=== PATIENT | female | born 1945 | race Hispanic/Latino ===

== ENCOUNTER 2016-08-16 08:37 | Emergency (ER) | payer MEDICARE ==
--- NOTE | 2016-08-16 09:59 | XRay Report ---
AP CHEST: HISTORY: chest pain Borderline cardiomegaly. Normal pulmonary vascularity. The lungs are clear. No pleural effusion or pneumothorax. Neurostimulator device is noted in the left chest. The bony structures are demineralized but grossly intact. IMPRESSION: Borderline cardiomegaly. No acute process noted. Osteopenia.
[2016-08-16 10:29] LABS: Basophils % (Auto) 0.2 % (0.0-1.8); Eosinophils % (Auto) 0.2 % (0.0-4.3); Hematocrit 38.9 % (30.3-42.9); Hemoglobin 12.6 gm/dl (10.1-14.3); Mean Corpuscular HGB Conc 32 % (30-34); Mean Corpuscular Hemoglobin 33 pg (28-32); Mean Corpuscular Volume 100 fl (79-97); Platelet Count 268 K/mm3 (140-440); Red Blood Count 3.88 M/mm3 (3.65-5.03); Red Cell Distribution Width 13.9 % (13.2-15.2)
[2016-08-16 10:40] LABS: Anion Gap 15 mmol/L; Blood Urea Nitrogen 9 mg/dL (7-17); Carbon Dioxide 27 mmol/L (22-30); Chloride 100.5 mmol/L (98-107); Glucose 105 mg/dL (65-100); Potassium 3.8 mmol/L (3.6-5.0); Sodium 139 mmol/L (137-145)
--- NOTE | 2016-08-16 10:45 | Cat Scan Report ---
CT HEAD WITHOUT CONTRAST: HISTORY: Seizure, fall, head injury. Left parietal soft tissue swelling is noted. Left frontotemporal craniotomy changes are noted with encephalomalacia throughout the left anterior temporal lobe. There is diffuse cortical volume loss and chronic white matter changes. Chronic lacunar infarct in the right thalamus is unchanged. No evidence for hemorrhage, mass, mass effect or large area of acute ischemia. Ventricular size is within normal limits. The posterior fossa contents are unremarkable. The visualized sinuses and mastoid air cells are well-aerated. IMPRESSION: Left parietal soft tissue swelling. No acute intracranial process is appreciated.
[2016-08-16] MEDS: TRILEPTAL PO ONE (11:28)
--- NOTE | 2016-08-16 11:39 | Emergency Department Report ---
ED Seizure HPI - General Chief Complaint: Seizure Stated Complaint: SEIZURE Time Seen by Provider: 08/16/16 10:19 Source: patient, family, EMS Mode of arrival: Stretcher Limitations: Altered Mental Status - History of Present Illness Initial Comments: 70-year-old female with a past medical history of Alzheimer's dementia, epilepsy , brain surgery, and implanted nerve stimulator presents to the hospital complaints of 2 seizures this a.m. prior to arrival. Patient resides at [facility]. Seizure was noted by staff. It is also suspect that patient fell last night after be placed in the bed since the blood was found on the floor. Patient has unexplained bruising to her anterior chest wall as well. Patient denies any symptoms currently but unable to provide detailed HPI secondary to dementia. Son at bedside is presenting history of present illness. Last seizure was 2 weeks ago. She is neurologist is Dr. Guy Rodriguez at [place]. Patient's been compliant with her Trileptal, Felbatol , and Vimpat for seizures. Patient did not have her seizure medications this morning. - Related Data Home Medications Medication Instructions Recorded Confirmed Last Taken guaiFENesin DM [Robitussin Dm] 5 ml PO Q4H PRN 04/07/15 04/07/15 04/07/15 Previous Rx's Medication Instructions Recorded Last Taken Type OXcarbazepine [Trileptal] 300 mg PO 0800,1700 #60 tablet 04/12/14 04/07/15 Rx Felbamate [Felbatol] 600 mg PO BID #60 tablet 04/10/15 Unknown Rx Haloperidol [Haldol] 0.5 mg PO Q4HR PRN #30 tablet 04/10/15 Unknown Rx LORazepam [Ativan] 0.5 mg PO Q6H PRN #30 tablet 04/10/15 Unknown Rx Lacosamide [Vimpat] 150 mg PO 0800,1700 #60 tablet 04/10/15 Unknown Rx Levofloxacin [Levaquin TAB] 500 mg PO QDAY #10 tablet 04/10/15 Unknown Rx Metoprolol [Lopressor TAB] 25 mg PO BID #60 tablet 04/10/15 Unknown Rx OXcarbazepine [Trileptal] 150 mg PO DAILY@1200 #30 tablet 04/10/15 Unknown Rx Omeprazole [PriLOSEC] 20 mg PO DAILY #30 capsule. 04/10/15 Unknown Rx Sennosides [Senokot] 1 tab PO DAILY PRN #30 tablet 04/10/15 Unknown Rx Lacosamide [Vimpat] 150 mg PO BID #60 tablet 08/16/16 Unknown Rx Allergies Allergy/AdvReac Type Severity Reaction Status Date / Time Penicillins Allergy Unknown Verified 09/11/13 21:25 aspirin AdvReac Unknown Verified 04/07/15 19:56 ED Review of Systems ROS: Stated complaint: SEIZURE Other details as noted in HPI Comment: Unobtainable due to pts medical conditions (dementia, see HPI) ED Past Medical Hx - Past Medical History Previous Medical History?: Yes Hx Seizures: Yes Hx Dementia: Yes (Alzheimer's) Hx HIV: No Additional medical history: Epilepsy, Anxiety, Restlessness, chronic pain - Surgical History Past Surgical History?: Yes Additional Surgical History: brain surgery, nerve stimulator implanted - Social History Smoking Status: Never Smoker Substance Use Type: None - Medications Home Medications: Home Medications Medication Instructions Recorded Confirmed Last Taken Type OXcarbazepine [Trileptal] 300 mg PO 0800,1700 #60 tablet 04/12/14 04/07/1504/07 Rx guaiFENesin DM [Robitussin Dm] 5 ml PO Q4H PRN 04/07/15 04/07/15 04/07/15 History Felbamate [Felbatol] 600 mg PO BID #60 tablet 04/10/15 Unknown Rx Haloperidol [Haldol] 0.5 mg PO Q4HR PRN #30 tablet 04/10/15 Unknown Rx LORazepam [Ativan] 0.5 mg PO Q6H PRN #30 tablet 04/10/15 Unknown Rx Lacosamide [Vimpat] 150 mg PO 0800,1700 #60 tablet 04/10/15 Unknown Rx Levofloxacin [Levaquin TAB] 500 mg PO QDAY #10 tablet 04/10/15 Unknown Rx Metoprolol [Lopressor TAB] 25 mg PO BID #60 tablet 04/10/15 Unknown Rx OXcarbazepine [Trileptal] 150 mg PO DAILY@1200 #30 tablet 04/10/15 Unknown Rx Omeprazole [PriLOSEC] 20 mg PO DAILY #30 capsule. 04/10/15 Unknown Rx Sennosides [Senokot] 1 tab PO DAILY PRN #30 tablet 04/10/15 Unknown Rx Lacosamide [Vimpat] 150 mg PO BID #60 tablet 08/16/16 Unknown Rx ED Physical Exam - General Limitations: Altered Mental Status - Other Other exam information: General: No limitations, patient is alert in no acute distress Head exam: Atraumatic, normocephalic Eyes exam: Opacified right eye questionable cataracts, left pupil reactive ENT: Moist mucous membrane, no tongue laceration Neck exam: Normal inspection, full range of motion, no meningismus nontender Respiratory exam: Clear to auscultation bilateral, no wheezes, rales, crackles Cardiovascular: Bruising noted to anterior chest wall midline, minimum tenderness with palpation, no crepitus Abdomen: Soft, nondistended, and nontender, with normal bowel sounds, no rebound, or guarding Extremity: Full range of motion, no deformity, mild bruising noted at the right dennison Back: Normal Inspection, full range of motion, no tenderness Neurologic: Alert, oriented to self and place but not to year, cranial nerves intact, no motor or sensory deficit Psychiatric: normal affect, normal mood Skin: Warm, dry, intact ED Course Vital Signs 08/16/16 08/16/16 08/16/16 08:45 09:00 09:30 Temperature Pulse Rate 93 H 90 94 H Respiratory 18 19 16 Rate Blood Pressure 154/82 155/90 O2 Sat by Pulse 94 96 94 Oximetry 08/16/16 08/16/16 08/16/16 09:41 10:00 10:30 Temperature Pulse Rate 85 87 Respiratory 16 19 15 Rate Blood Pressure 155/80 156/84 O2 Sat by Pulse 99 97 97 Oximetry 08/16/16 08/16/16 08/16/16 10:46 11:00 11:30 Temperature 98.9 F Pulse Rate 89 96 H Respiratory 16 17 Rate Blood Pressure 156/80 151/78 O2 Sat by Pulse 95 87 Oximetry 08/16/16 08/16/16 08/16/16 12:00 12:30 13:00 Temperature Pulse Rate 101 H 98 H 92 H Respiratory 18 18 16 Rate Blood Pressure 137/79 129/82 148/81 O2 Sat by Pulse 96 95 Oximetry 08/16/16 08/16/16 13:30 14:00 Temperature Pulse Rate 95 H 95 H Respiratory 13 18 Rate Blood Pressure 152/80 141/83 O2 Sat by Pulse 98 96 Oximetry - Reevaluation(s) Reevaluation #1: 08/16/16 11:40 IV Vimpat, magnesium, and by mouth Tegretol ordered - Consultations Consultation #1: 08/16/1709:[address] Lane philosophy and religion instructor physician for Dr. Guy Rodriguez neurology at [place]. Recommends increasing the impact 150 twice a day. Also recommends to send levels. I informed him that whatever levels we have available are send outs and their office will need to request medical records as an outpatient to obtain these results. Follow up with Dr. Rodriguez is encouraged and he will make a note that patient required ER visitation. ED Medical Decision Making - Lab Data Result diagrams: 08/16/16 10:02 08/16/16 10:02 - EKG Data -: EKG Interpreted by Me (sinus rhythm right bundle branch block rate 95) - EKG Data When compared to previous EKG there are: no significant change (compared to 06/2014) - Radiology Data Radiology results: report reviewed CT head: Left parietal soft tissue swelling. No acute process Chest x-ray: Borderline cardiomegaly. No acute process. Osteopenia - Medical Decision Making I ordered a Tegretol level however, patient is actually on Trileptal and not Tegretol. Therefore, I would expect Tegretol level to be low. Patient is on felbamate, Triileptal, and Vimpat. We do not have any availability to order these levels through [employer] at this time. Pt received her a.m. dose of her seizure medications including the recent recommended increased dose of Vimpat. Unfortunally we do not have felbamate on pharmacy so she will need to take her dose when she returns home. Mild hypomagnesemia was treated with IV magnesium. Outpatient follow-up with neurologist will be encouraged. Son informed that there are no pending levels since we do not send those levels from the ER and to inform the neurologist during follow up. - Differential Diagnosis breakthrough seizure, intracranial hemorrhage, electrolyte abnormality Critical Care Time: No Critical care attestation.: If time is entered above; I have spent that time in minutes in the direct care of this critically ill patient, excluding procedure time. ED Disposition Clinical Impression: Breakthrough seizure, Dementia, Hypomagnesemia Disposition: DC-01 TO HOME OR SELFCARE Is pt being admited?: No Does the pt Need Aspirin: No Condition: Stable Instructions: Hypomagnesemia (ED), Recurrent Seizures Adult (ED) Additional Instructions: Increase your current Vimpat dose from 100 mg twice a day to 150 mg twice a day. I recommend that patient discontinue tramadol as needed for pain since this medication may reduce seizure threshold. Outpatient follow-up with neurology recommended. Unfortunately we do not have the capability to measure the levels of her current seizure medication. Inform your Neurologist of this so he may determine if it can be performed as an outpatient. Please return if symptoms worsen. Prescriptions: Lacosamide [Vimpat] 150 mg PO BID #60 tablet Referrals: Guy Muniz MD [Other] - VASQUEZ ([facility]rologist) Time of Disposition: 14:40
[2016-08-16 11:59] LABS: Bilirubin,Urine TNR (Negative); Blood,Urine TNR (Negative); Ketones,Urine TNR mg/dL (Negative); PH,Urine TNR (5.0-7.0); Protein,Urine TNR mg/dL (Negative)
[2016-08-16 12:00] LABS: Leukocyte Esterase,Urine TNR (Negative); Nitrite,Urine TNR (Negative); RBC,Urine TNR /HPF (0.0-6.0); Urobilinogen,Urine TNR mg/dL (<2.0); WBC,Urine TNR /HPF (0.0-6.0)
[2016-08-16 12:01] LABS: Mucus,Urine TNR /HPF
[2016-08-16 12:52] LABS: Bilirubin,Urine NEG (Negative); Blood,Urine NEG (Negative); Ketones,Urine NEG (Negative); Leukocyte Esterase,Urine NEG (Negative); Nitrite,Urine NEG (Negative); Protein,Urine <15 mg/dL mg/dL (Negative); RBC,Urine < 1.0 /HPF (0.0-6.0); Urobilinogen,Urine < 2.0 mg/dL (<2.0)
[2016-08-16] MEDS: VIMPAT 150 MG in NACL 0.9% 100 ML IV ONE (13:02)
[2016-08-16] MEDS: MAGNESIUM SULFATE 2GM/50ML 2 GM/50 ML BAG IV ONE (13:45)
[2016-08-16 14:21] VITALS: BP 141/83
== END 2016-08-16 15:08 | disposition home or self-care (01) ==
LOC: ED 08:37
DX: R56.9 Unspecified convulsions (principal); F03.90 Unspecified dementia, unspecified severity, without behavioral disturbance, psychotic disturbance, mood disturbance, and anxiety; E83.42 Hypomagnesemia
CPT/HCPCS: 36415; 70450; 71010; 80048; 80156; 81001; 83735; 85025; 93005; 93010; 96365; 96368; 99285; C9254; J3475

== ENCOUNTER 2016-09-03 18:59 | Emergency (ER) | payer MEDICARE ==
--- NOTE | 2016-09-03 21:32 | Cat Scan Report ---
FINAL REPORT PROCEDURE: CT CERVICAL SPINE WO CON TECHNIQUE: Computerized tomography of the cervical spine was performed from the skull base to T1 without contrast material. HISTORY: fall COMPARISON: No prior studies are available for comparison. FINDINGS: No fracture or subluxation is seen. The prevertebral soft tissues appear normal. Posterior elements are intact. Moderate facet arthritis is present bilaterally. Diffuse degenerative disc disease is visualize with disc space narrowing anterior posterior osteophytic spurs at each of the lumbar intervertebral disc spaces. C1-2: There is a large osteophytic spur projecting at the C1-C2 articulation on the left projecting into the spinal canal and along the left side of the cervical cord without definite cord compression.. C2-3: Neural foramina on the right is narrowed although probably still adequate. Diffuse disc bulge is present without cord compression or spinal stenosis.. C3-4: Posterior osteophytic spurs obscures the anterior epidural space and appears to be resting on the cord without cord compression. The neural foramina on the right appears stenotic the left is narrowed although probably still adequate.. C4-5: Posterior osteophytic spurring is visualized obscuring the anterior epidural space. There may be minimal cord compression centrally secondary to irregular spurring. The neural foramina are narrowed although probably still adequate.. C5-6: Posterior osteophytic spurring is visualized obscuring the anterior epidural space slightly greater to the right than the left without definite cord compression. Neural foramina are narrowed although probably still adequate.. C6-7: Posterior osteophytic spurs overlie disc bulge. This obscures the anterior epidural space and appears to be mildly compressing the anterior surface of the cord. The neural foramina are narrowed left side greater than right. I cannot exclude mild nerve root compression on the left.. C7-T1: Mild posterior osteophytic spurring present without focal disc herniation or spinal stenosis. T1-T2 asymmetric posterior osteophytic spurring projects to the right obscuring the anterior epidural space. I cannot exclude mild cord compression.. Other: There is a sub centimeter low-density nodule in the right lobe of the thyroid gland. Calcifications are visualized in the carotid arteries bilaterally indicating atherosclerotic disease.. IMPRESSION: No fracture or subluxation is seen. Moderate diffuse degenerative disc disease is present as well as facet arthritis. There is narrowing of the spinal canal and mild compression of the cervical cord secondary to the degenerative changes as well as neural foraminal narrowing as described in detail above. Atherosclerosis carotid arteries..
--- NOTE | 2016-09-03 21:45 | Cat Scan Report ---
FINAL REPORT PROCEDURE: CT HEAD/BRAIN WO CON TECHNIQUE: Computerized tomography of the head was performed without contrast material. HISTORY: fall COMPARISON: Prior CT scan of the brain 08/19/2016 FINDINGS: Previous craniotomies are again visualize left frontal temporal and right frontal temporal region. Bone flaps are in place although there is exposure of the left temporal fossa anteriorly. This is unchanged.. No acute fractures seen. There is no evidence of intracranial hemorrhage. No parenchymal hemorrhage mass lesions or mass effect are identified. There is old encephalomalacia involving the temporal lobe. There is also moderate gliosis again visualize without interval change. A small old area of encephalomalacia is again visualized in the anterior lateral aspect of the left frontal lobe. Old lacunar infarct is seen in the right thalamus and anterior limb of the left internal capsule. The ventricles are midline. The ventricles sulcal pattern and fissures are prominent consistent with mild to moderate atrophy. Postsurgical changes are seen involving right globe of the right orbit. There appears to be a band surrounding globe. There is mild mucosal thickening posteriorly in the left maxillary sinus. The olmedo of the maxillary sinuses are thicker than expected which may be related to previous chronic sinusitis. Paranasal sinuses otherwise are clear. Mastoid air cells are clear. IMPRESSION: No acute abnormalities are identified. No acute fractures or intracranial hemorrhages are identified. Postsurgical changes are seen from bilateral craniotomies. There is evidence of atrophy gliosis. Old areas of encephalomalacia are seen in the left frontal and left temporal lobe. Old lacunar infarcts are present as described.. Chronic sinusitis suspected as described above. No other abnormalities are seen.
[2016-09-03 22:13] LABS: Basophils % (Auto) 0.8 % (0.0-1.8); Eosinophils % (Auto) 0.5 % (0.0-4.3); Hematocrit 37.7 % (30.3-42.9); Hemoglobin 12.6 gm/dl (10.1-14.3); Mean Corpuscular HGB Conc 33 % (30-34); Mean Corpuscular Hemoglobin 33 pg (28-32); Mean Corpuscular Volume 98 fl (79-97); Platelet Count 255 K/mm3 (140-440); Red Blood Count 3.84 M/mm3 (3.65-5.03); Red Cell Distribution Width 14.5 % (13.2-15.2); White Blood Count 9.6 K/mm3 (4.5-11.0)
[2016-09-03 22:23] LABS: INR 1.12 (0.87-1.13)
[2016-09-03 22:30] LABS: Anion Gap 17 mmol/L; Blood Urea Nitrogen 13 mg/dL (7-17); Calcium 8.8 mg/dL (8.4-10.2); Carbon Dioxide 25 mmol/L (22-30); Chloride 104.3 mmol/L (98-107); Glucose 101 mg/dL (65-100); Potassium 3.7 mmol/L (3.6-5.0); Sodium 143 mmol/L (137-145)
[2016-09-03 22:37] VITALS: BP 186/72
[2016-09-03] MEDS ORDERED: BOOSTRIX IM ONE (22:46)
--- NOTE | 2016-09-03 23:09 | Emergency Department Report ---
ED Fall HPI - General Chief Complaint: Fall Stated Complaint: FALL Time Seen by Provider: 09/03/16 21:39 Source: family, EMS Mode of arrival: Stretcher - History of Present Illness Initial Comments: 70-year-old female with past medical history dementia presenting to the emergency room after ground level fall. Patient fell while trying to get into bed in her assisted living facility. Patient was found the floor with an abrasion to her left forehead. Patient complaining of headache and neck pain initially on ED arrival. Denies: Neuro deficits, change in vision, chest pain, back pain, extremity pain, abdominal pain. MD Complaint: fall -: Sudden Fall From: standing Fall Witnessed: no Place Fall Occurred: home Loss of Consciousness: unsure Prolonged Down Time?: no Symptoms Prior to Fall: none Location: head, neck Context: tripped/slipped Associated Symptoms: headache, neck pain, confusion. denies: numbness, weakness , chest paint, lightheaded, vertigo - Related Data Home Medications Medication Instructions Recorded Confirmed Last Taken RX: guaiFENesin DM [Robitussin Dm] 5 ml PO Q4H PRN 04/07/15 04/07/15 04/07/15 Previous Rx's Medication Instructions Recorded Last Taken Type RX: OXcarbazepine [Trileptal] 300 mg PO 0800,1700 #60 tablet 04/12/14 04/07/15 Rx RX: Felbamate [Felbatol] 600 mg PO BID #60 tablet 04/10/15 Unknown Rx RX: Haloperidol [Haldol] 0.5 mg PO Q4HR PRN #30 tablet 04/10/15 Unknown Rx RX: LORazepam [Ativan] 0.5 mg PO Q6H PRN #30 tablet 04/10/15 Unknown Rx RX: Lacosamide [Vimpat] 150 mg PO 0800,1700 #60 tablet 04/10/15 Unknown Rx RX: Metoprolol [Lopressor TAB] 25 mg PO BID #60 tablet 04/10/15 Unknown Rx RX: OXcarbazepine [Trileptal] 150 mg PO DAILY@1200 #30 tablet 04/10/15 Unknown Rx RX: Omeprazole [PriLOSEC] 20 mg PO DAILY #30 04/10/15 Unknown Rx RX: Sennosides [Senokot] 1 tab PO DAILY PRN #30 tablet 04/10/15 Unknown Rx RX: Lacosamide [Vimpat] 150 mg PO BID #60 tablet 08/16/16 Unknown Rx Cyanocobalamin/Folic Acid [B-12 1 each SL 2XWHS #30 tab.subl 08/21/16 Unknown Rx 1,000 Mcg Sub Tablet] RX: Levofloxacin [Levaquin TAB] 500 mg PO Q24HR #7 tablet 08/21/16 Unknown Rx Allergies Allergy/AdvReac Type Severity Reaction Status Date / Time Penicillins Allergy Unknown Verified 09/11/13 21:25 aspirin AdvReac Unknown Verified 04/07/15 19:56 ED Review of Systems ROS: Stated complaint: FALL Other details as noted in HPI Constitutional: denies: chills, fever Eyes: denies: eye pain, eye discharge, vision change ENT: denies: ear pain, throat pain Respiratory: denies: cough, shortness of breath, wheezing Cardiovascular: denies: chest pain, palpitations Endocrine: no symptoms reported Gastrointestinal: denies: abdominal pain, nausea, diarrhea Genitourinary: denies: urgency, dysuria, discharge Musculoskeletal: denies: back pain, joint swelling, arthralgia Skin: denies: rash, lesions Neurological: headache. denies: weakness, paresthesias Psychiatric: denies: anxiety, depression Hematological/Lymphatic: denies: easy bleeding, easy bruising ED Past Medical Hx - Past Medical History Previous Medical History?: Yes Hx Hypertension: Yes Hx Arthritis: Yes Hx Seizures: Yes Hx Dementia: Yes (Alzheimer's) Hx HIV: No Additional medical history: Epilepsy, Anxiety, Restlessness, chronic pain - Surgical History Past Surgical History?: Yes Additional Surgical History: brain surgery, nerve stimulator implanted - Social History Smoking Status: Never Smoker Substance Use Type: Prescribed - Medications Home Medications: Home Medications Medication Instructions Recorded Confirmed Last Taken Type RX: OXcarbazepine [Trileptal] 300 mg PO 0800,1700 #60 tablet 04/12/14 04/07/15 04/07/15 Rx RX: guaiFENesin DM [Robitussin Dm] 5 ml PO Q4H PRN 04/07/15 04/07/15 04/07/15 History RX: Felbamate [Felbatol] 600 mg PO BID #60 tablet 04/10/15 Unknown Rx RX: Haloperidol [Haldol] 0.5 mg PO Q4HR PRN #30 tablet 04/10/15 Unknown Rx RX: LORazepam [Ativan] 0.5 mg PO Q6H PRN #30 tablet 04/10/15 Unknown Rx RX: Lacosamide [Vimpat] 150 mg PO 0800,1700 #60 tablet 04/10/15 Unknown Rx RX: Metoprolol [Lopressor TAB] 25 mg PO BID #60 tablet 04/10/15 Unknown Rx RX: OXcarbazepine [Trileptal] 150 mg PO DAILY@1200 #30 tablet 04/10/15 Unknown Rx RX: Omeprazole [PriLOSEC] 20 mg PO DAILY #30 capsule.dr 04/10/15 Unknown Rx RX: Sennosides [Senokot] 1 tab PO DAILY PRN #30 tablet 04/10/15 Unknown Rx RX: Lacosamide [Vimpat] 150 mg PO BID #60 tablet 08/16/16 Unknown Rx Cyanocobalamin/Folic Acid [B-12 1 each SL 2XWHS #30 tab.subl 08/21/16 Unknown Rx 1,000 Mcg Sub Tablet] RX: Levofloxacin [Levaquin TAB] 500 mg PO Q24HR #7 tablet 08/21/16 Unknown Rx ED Physical Exam - General Limitations: Altered Mental Status, Physical Limitation General appearance: alert, in no apparent distress - Head Head exam: Present: normocephalic, other (Pt has abraison to left eye brow) - Eye Eye exam: Present: normal appearance - ENT ENT exam: Present: mucous membranes moist - Neck Neck exam: Present: tenderness (parspinal tenderness ) - Respiratory Respiratory exam: Present: normal lung sounds bilaterally. Absent: respiratory distress, wheezes, chest wall tenderness, accessory muscle use, decreased breath sounds - Cardiovascular Cardiovascular Exam: Present: regular rate, normal rhythm. Absent: systolic murmur, diastolic murmur, rubs, gallop - GI/Abdominal GI/Abdominal exam: Present: soft, normal bowel sounds - Extremities Exam Extremities exam: Present: normal inspection - Back Exam Back exam: Present: normal inspection - Neurological Exam Neurological exam: Present: alert, CN II-XII intact, other (5/5 extremity strength, intact sensation throughout all extremities ) - Psychiatric Psychiatric exam: Present: normal affect, normal mood - Skin Skin exam: Present: warm, dry, intact, normal color. Absent: rash ED Course Vital Signs 09/03/16 09/03/16 09/03/16 19:34 22:33 22:36 Temperature 97.9 F 97.9 F Pulse Rate 71 72 Respiratory 16 16 16 Rate Blood Pressure 199/96 Blood Pressure 199/96 186/72 [Right] O2 Sat by Pulse 97 97 97 Oximetry ED Medical Decision Making - Lab Data Result diagrams: 09/03/16 21:58 09/03/16 21:58 - Radiology Data Radiology results: report reviewed, image reviewed CT brain: No acute abnormalities identified. No acute fracture or intracranial hemorrhage identified. Postsurgical changes are seen from bilateral craniotomies. There is evidence of a trophy gliosis. Old areas of encephalomalacia in the left frontal and left temporal lobe. Old lacunar infarction present as described. Chronic sinusitis but does described above. No other abnormalities are seen. Dr Daniel HERNANDEZ. CT cervical spine: No fracture or subluxation is seen. Moderate diffuse degenerative disc disease is present as well as facet arthritis. There is narrowing of the spinal canal and mild compression of the cervical cord secondary to degenerative changes as well as neural foraminal narrowing as described in detail above. Atherosclerosis carotid arteries. Dr Sanchez - Medical Decision Making 70-year-old female with past medical history of dementia presenting to the emergency after fall. Patient does have abrasion on the head, negative head CT. Patient is complaining of neck pain I'm unable to clear her C-spine. Given that CT had concerns from mild cord compression I will transfer patient to trauma center for further evaluation and cervical spine clearance. Of note patient unable to get an MRI cervical spine at [facility] as she has a nerve stimulator device in her chest per son who was at bedside. pt will be transfered to [facility] for futher trauma evaluation concerning cervical spine pain and possible cord compression Critical Care Time: Yes Critical care attestation.: If time is entered above; I have spent that time in minutes in the direct care of this critically ill patient, excluding procedure time. Critical Care Time: 35 minutes ED Disposition Clinical Impression: Forehead abrasion, Sprain of ligament of cervical spine region, Cervical spinal cord compression Disposition: DC/TX-70 ANOTHER TYPE HLTHCARE Is pt being admited?: No Does the pt Need Aspirin: No Condition: Stable Referrals: PRIMARY CARE, [Primary Care Provider] - 3-5 Days
== END 2016-09-03 23:09 | disposition other institution (70) ==
LOC: ED 18:59
DX: S16.1XXA Strain of muscle, fascia and tendon at neck level, initial encounter (principal); S00.81XA Abrasion of other part of head, initial encounter; G95.29 Other cord compression; I10 Essential (primary) hypertension; M19.90 Unspecified osteoarthritis, unspecified site; G30.9 Alzheimer's disease, unspecified; F02.80 Dementia in other diseases classified elsewhere, unspecified severity, without behavioral disturbance, psychotic disturbance, mood disturbance, and anxiety; F41.9 Anxiety disorder, unspecified; G40.909 Epilepsy, unspecified, not intractable, without status epilepticus; G89.29 Other chronic pain; Z88.0 Allergy status to penicillin; Z88.6 Allergy status to analgesic agent; W06.XXXA Fall from bed, initial encounter; Y93.89 Activity, other specified; Y99.8 Other external cause status; Y92.009 Unspecified place in unspecified non-institutional (private) residence as the place of occurrence of the external cause
CPT/HCPCS: 36415; 70450; 72125; 80048; 84484; 85025; 85610; 90471; 90715; 93005; 93010

== ENCOUNTER 2016-09-19 19:11 | Emergency (ER) | payer MEDICARE ==
--- NOTE | 2016-09-19 20:24 | Cat Scan Report ---
FINAL REPORT PROCEDURE: CT HEAD/BRAIN WO CON TECHNIQUE: Computerized tomography of the head was performed without contrast material. HISTORY: fall head trauma COMPARISON: 09/03/2016 FINDINGS: There has been left parietotemporal craniotomy and right temporal craniotomy. There is underlying encephalomalacia of the left temporal lobe. There are diffuse underlying involutional changes. There is extensive periventricular white matter low attenuation, likely related to chronic microvascular ischemic changes. There is no CT evidence of acute intracranial hemorrhage, mass, hydrocephalus, or acute territorial infarction. The intracranial arteries are symmetric in density. There is stable high attenuation and postsurgical change of the right globe. No acute fracture is seen. Mild left maxillary sinus mucosal thickening. The mastoids are hypopneumatized bilaterally. IMPRESSION: No CT evidence of acute abnormality. Other findings as above
--- NOTE | 2016-09-19 20:31 | Cat Scan Report ---
FINAL REPORT PROCEDURE: CT CERVICAL SPINE WO CON TECHNIQUE: Computerized tomography of the cervical spine was performed from the skull base to T1 without contrast material. HISTORY: fall head trauma, neck pain COMPARISON: 09/03/2016 FINDINGS: There are multilevel degenerative disc and facet arthritic changes. There is disc space narrowing and osteophyte formation at all intervertebral body levels. No acute fracture or subluxation is seen. IMPRESSION: No acute fracture or subluxation is seen.
[2016-09-19 20:36] LABS: Hematocrit 41.1 % (30.3-42.9); Hemoglobin 13.7 gm/dl (10.1-14.3); Mean Corpuscular HGB Conc 33 % (30-34); Mean Corpuscular Hemoglobin 34 pg (28-32); Mean Corpuscular Volume 101 fl (79-97); Platelet Count 241 K/mm3 (140-440); Red Blood Count 4.07 M/mm3 (3.65-5.03); Red Cell Distribution Width 14.2 % (13.2-15.2); White Blood Count 9.1 K/mm3 (4.5-11.0)
[2016-09-19 20:52] LABS: Creatine Kinase MB 1.3 ng/mL (0.0-4.0)
[2016-09-19 20:53] LABS: Anion Gap 15 mmol/L; Blood Urea Nitrogen 13 mg/dL (7-17); Calcium 9.4 mg/dL (8.4-10.2); Carbon Dioxide 27 mmol/L (22-30); Creatine Kinase 18 units/L (30-135); Glucose 112 mg/dL (65-100); Potassium 4.4 mmol/L (3.6-5.0); Sodium 139 mmol/L (137-145)
[2016-09-19] MEDS ORDERED: MAGNESIUM SULFATE 2GM/50ML 2 GM/50 ML BAG IV ONE (21:19)
--- NOTE | 2016-09-19 21:19 | Emergency Department Report ---
ED Fall HPI - General Chief Complaint: Fall Stated Complaint: FALL Time Seen by Provider: 09/19/16 20:16 Source: patient, EMS Mode of arrival: Stretcher Limitations: Other (dementia) - History of Present Illness Initial Comments: 70-year-old female with a past medical history Alzheimer's dementia, hypertension, arthritis, and epilepsy presents to the hospital status post fall. Patient was found at the assisted living facility on the floor between the toilet and the door. Son states that patient is primarily wheelchair bound he cannot ambulate without assistance. Often she is unable to communicate that she has to go to the bathroom and when she is not being watched closely she attempts to get up. He thinks that she was likely trying to use the restroom when she fell. Patient denies any complaints. Laceration noted to the right brow. Son states patient is at her baseline mental status. Previous medical record reviewed and patient has had frequent recent visits to the ER secondary to either seizure, being found down, or fall. - Related Data Home Medications Medication Instructions Recorded Confirmed Last Taken guaiFENesin DM [Robitussin Dm] 5 ml PO Q4H PRN 04/07/15 04/07/15 04/07/15 Previous Rx's Medication Instructions Recorded Last Taken Type OXcarbazepine [Trileptal] 300 mg PO 0800,1700 #60 tablet 04/12/14 04/07/15 Rx Felbamate [Felbatol] 600 mg PO BID #60 tablet 04/10/15 Unknown Rx Haloperidol [Haldol] 0.5 mg PO Q4HR PRN #30 tablet 04/10/15 Unknown Rx LORazepam [Ativan] 0.5 mg PO Q6H PRN #30 tablet 04/10/15 Unknown Rx Lacosamide [Vimpat] 150 mg PO 0800,1700 #60 tablet 04/10/15 Unknown Rx Metoprolol [Lopressor TAB] 25 mg PO BID #60 tablet 04/10/15 Unknown Rx OXcarbazepine [Trileptal] 150 mg PO DAILY@1200 #30 tablet 04/10/15 Unknown Rx Omeprazole [PriLOSEC] 20 mg PO DAILY #30 capsule. 04/10/15 Unknown Rx Sennosides [Senokot] 1 tab PO DAILY PRN #30 tablet 02/03/16 Unknown Rx Lacosamide [Vimpat] 150 mg PO BID #60 tablet 08/16/16 Unknown Rx Cyanocobalamin/Folic Acid [B-12 1 each SL 2XWHS #30 tab.subl 08/21/16 Unknown Rx 1,000 Mcg Sub Tablet] Levofloxacin [Levaquin TAB] 500 mg PO Q24HR #7 tablet 08/21/16 Unknown Rx Allergies Allergy/AdvReac Type Severity Reaction Status Date / Time Penicillins Allergy Unknown Verified 09/11/13 21:25 aspirin AdvReac Unknown Verified 04/07/15 19:56 ED Review of Systems ROS: Stated complaint: FALL Other details as noted in HPI Comment: Unobtainable due to pts medical conditions (Limited secondary to Alzheimer see HPI) ED Past Medical Hx - Past Medical History Previous Medical History?: Yes Hx Hypertension: Yes Hx Arthritis: Yes Hx Seizures: Yes Hx Dementia: Yes (Alzheimer's) Hx HIV: No Additional medical history: Epilepsy, Anxiety, Restlessness, chronic pain - Surgical History Past Surgical History?: Yes Additional Surgical History: brain surgery, nerve stimulator implanted - Social History Smoking Status: Current Every Day Smoker Substance Use Type: None - Medications Home Medications: Home Medications Medication Instructions Recorded Confirmed Last Taken Type OXcarbazepine [Trileptal] 300 mg PO 0800,1700 #60 tablet 04/12/14 04/07/1504/07 Rx guaiFENesin DM [Robitussin Dm] 5 ml PO Q4H PRN 04/07/15 04/07/15 04/07/15 History Felbamate [Felbatol] 600 mg PO BID #60 tablet 04/10/15 Unknown Rx Haloperidol [Haldol] 0.5 mg PO Q4HR PRN #30 tablet 04/10/15 Unknown Rx LORazepam [Ativan] 0.5 mg PO Q6H PRN #30 tablet 04/10/15 Unknown Rx Lacosamide [Vimpat] 150 mg PO 0800,1700 #60 tablet 04/10/15 Unknown Rx Metoprolol [Lopressor TAB] 25 mg PO BID #60 tablet 04/10/15 Unknown Rx OXcarbazepine [Trileptal] 150 mg PO DAILY@1200 #30 tablet 04/10/15 Unknown Rx Omeprazole [PriLOSEC] 20 mg PO DAILY #30 kendy 04/10/15 Unknown Rx Sennosides [Senokot] 1 tab PO DAILY PRN #30 tablet 04/10/15 Unknown Rx Lacosamide [Vimpat] 150 mg PO BID #60 tablet 08/16/16 Unknown Rx Cyanocobalamin/Folic Acid [B-12 1 each SL 2XWHS #30 tab.subl 08/21/16 Unknown Rx 1,000 Mcg Sub Tablet] Levofloxacin [Levaquin TAB] 500 mg PO Q24HR #7 tablet 08/21/16 Unknown Rx ED Physical Exam - General Limitations: Other - Other Other exam information: General: No limitations, patient is alert in no acute distress Head exam: Right brow laceration 3 cm no active bleeding. Mild ecchymosis noted to right eyelid. 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 Neck exam: Normal inspection, full range of motion, no meningismus nontender Respiratory exam: Clear to auscultation bilateral, no wheezes, rales, crackles Cardiovascular: Normal rate and rhythm, normal heart sounds Abdomen: Soft, nondistended, and nontender, with normal bowel sounds, no rebound, or guarding Extremity: Full range of motion normal inspection no deformity Back: Normal Inspection, full range of motion, no tenderness Neurologic: Alert, oriented to self, cranial nerves intact, no motor or sensory deficit Psychiatric: normal affect, normal mood Skin: Warm, dry, intact ED Course Vital Signs 09/19/16 09/19/16 19:45 19:54 Temperature 98.1 F Pulse Rate 74 Respiratory 18 18 Rate Blood Pressure 162/80 O2 Sat by Pulse 98 100 Oximetry - Laceration /Wound Repair Right Face Wound Location: face Wound Length (cm): 3 Wound's Depth, Shape: linear Wound Explored: clean Irrigated w/ Saline (ccs): 50 Betadine Prep?: Yes Wound Repaired With: Dermabond Layer Closure?: No Sterile Dressing Applied?: Yes ED Medical Decision Making - Lab Data Result diagrams: 09/19/16 20:22 09/19/16 20:22 Lab Results 09/19/16 09/19/16 09/19/16 Range/Units 20:22 20:22 20:22 WBC 9.1 (4.5-11.0) K/mm3 RBC 4.07 (3.65-5.03) M/mm3 Hgb 13.7 (10.1-14.3) gm/dl Hct 41.1 (30.3-42.9) % MCV 101 H (79-97) fl MCH 34 H (28-32) pg MCHC 33 (30-34) % RDW 14.2 (13.2-15.2) % Plt Count 241 (140-440) K/mm3 Sodium 139 (137-145) mmol/L Potassium 4.4 (3.6-5.0) mmol/L Chloride 101.0 (98-107) mmol/L Carbon Dioxide 27 (22-30) mmol/L Anion Gap 15 mmol/L BUN 13 (7-17) mg/dL Creatinine 0.5 L (0.7-1.2) mg/dL Estimated GFR > 60 ml/min BUN/Creatinine Ratio 26.00 % Glucose 112 H (65-100) mg/dL Calcium 9.4 (8.4-10.2) mg/dL Magnesium (1.7-2.3) mg/dL Total Creatine Kinase 18 L (30-135) units/L CK-MB (CK-2) 1.3 (0.0-4.0) ng/mL CK-MB (CK-2) Rel Index 7.2 H (0-4) Troponin T < 0.010 (0.00-0.029) ng/mL Urine Color (Yellow) Urine Turbidity (Clear) Urine pH (5.0-7.0) Ur Specific Campbell (1.003-1.030) Urine Protein (Negative) mg/dL Urine Glucose (UA) (Negative) mg/dL Urine Ketones (Negative) mg/dL Urine Blood (Negative) Urine Nitrite (Negative) Urine Bilirubin (Negative) Urine Urobilinogen (<2.0) mg/dL Ur Leukocyte Esterase (Negative) Urine WBC (Auto) (0.0-6.0) /HPF Urine RBC (Auto) (0.0-6.0) /HPF 09/19/16 09/19/16 Range/Units 20:22 21:57 WBC (4.5-11.0) K/mm3 RBC (3.65-5.03) M/mm3 Hgb (10.1-14.3) gm/dl Hct (30.3-42.9) % MCV (79-97) fl MCH (28-32) pg MCHC (30-34) % RDW (13.2-15.2) % Plt Count (140-440) K/mm3 Sodium (137-145) mmol/L Potassium (3.6-5.0) mmol/L Chloride (98-107) mmol/L Carbon Dioxide (22-30) mmol/L Anion Gap mmol/L BUN (7-17) mg/dL Creatinine (0.7-1.2) mg/dL Estimated GFR ml/min BUN/Creatinine Ratio % Glucose (65-100) mg/dL Calcium (8.4-10.2) mg/dL Magnesium 1.60 L (1.7-2.3) mg/dL Total Creatine Kinase (30-135) units/L CK-MB (CK-2) (0.0-4.0) ng/mL CK-MB (CK-2) Rel Index (0-4) Troponin T (0.00-0.029) ng/mL Urine Color Straw (Yellow) Urine Turbidity Clear (Clear) Urine pH 6.0 (5.0-7.0) Ur Specific Campbell 1.013 (1.003-1.030) Urine Protein <15 mg/dl (Negative) mg/dL Urine Glucose (UA) Neg (Negative) mg/dL Urine Ketones Neg (Negative) mg/dL Urine Blood Neg (Negative) Urine Nitrite Neg (Negative) Urine Bilirubin Neg (Negative) Urine Urobilinogen < 2.0 (<2.0) mg/dL Ur Leukocyte Esterase Neg (Negative) Urine WBC (Auto) 0.0 (0.0-6.0) /HPF Urine RBC (Auto) 0.0 (0.0-6.0) /HPF - EKG Data -: EKG Interpreted by Me (sinus 68 LAE,RBB, septal infarct) - EKG Data When compared to previous EKG there are: no significant change (august 28, 2016) - Radiology Data Radiology results: report reviewed ct head: naf ct cervical spine: naf - Medical Decision Making Patient had baseline mental status. Laceration was repaired. No signs of acute infection I suspect mechanical fall due to chronic unstable gait and attempt to ambulate without assistance secondary to dementia. Patient is having frequent mechanical falls at the assisted living. Discussed possibility of need for correction placement with her son so that pt may obtain closer monitoring and care. - Differential Diagnosis fall, sz, uti, encephalopathy, dementia Critical Care Time: No Critical care attestation.: If time is entered above; I have spent that time in minutes in the direct care of this critically ill patient, excluding procedure time. ED Disposition Clinical Impression: Dementia, Fall, Face lacerations Disposition: DC- TO HOME OR SELFCARE Is pt being admited?: No Does the pt Need Aspirin: No Condition: Stable Instructions: Skin Adhesive Care (ED), Fall Prevention for Older Adults (ED) Referrals: PRIMARY CARE, [Primary Care Provider] - 3-5 Days Time of Disposition: 23:18
[2016-09-19 22:53] LABS: Bilirubin,Urine NEG (Negative); Blood,Urine NEG (Negative); Ketones,Urine NEG (Negative); Leukocyte Esterase,Urine NEG (Negative); Nitrite,Urine NEG (Negative); Protein,Urine <15 mg/dL mg/dL (Negative); Urobilinogen,Urine < 2.0 mg/dL (<2.0)
[2016-09-20] VITALS: BP 149/62
== END 2016-09-20 00:12 | disposition home or self-care (01) ==
LOC: ED 19:11
DX: S01.112A Laceration without foreign body of left eyelid and periocular area, initial encounter (principal); G30.9 Alzheimer's disease, unspecified; F02.80 Dementia in other diseases classified elsewhere, unspecified severity, without behavioral disturbance, psychotic disturbance, mood disturbance, and anxiety; I10 Essential (primary) hypertension; F31.9 Bipolar disorder, unspecified; G89.29 Other chronic pain; G40.909 Epilepsy, unspecified, not intractable, without status epilepticus; M19.90 Unspecified osteoarthritis, unspecified site; W01.0XXA Fall on same level from slipping, tripping and stumbling without subsequent striking against object, initial encounter; Z88.6 Allergy status to analgesic agent; Z88.0 Allergy status to penicillin; Z91.81 History of falling; Y93.89 Activity, other specified; Y99.8 Other external cause status; Y92.89 Other specified places as the place of occurrence of the external cause
CPT/HCPCS: 12013; 36415; 51701; 70450; 72125; 80048; 81001; 82550; 82553; 83735; 84484; 85027; 93005; 93010; 96365; 99285; J3475

== ENCOUNTER 2016-11-16 08:33 | Emergency (ER) | payer MEDICARE ==
[2016-11-16 09:59] LABS: Basophils % (Auto) 0.6 % (0.0-1.8); Eosinophils % (Auto) 0.6 % (0.0-4.3); Hematocrit 39.7 % (30.3-42.9); Hemoglobin 13.1 gm/dl (10.1-14.3); Mean Corpuscular HGB Conc 33 % (30-34); Mean Corpuscular Hemoglobin 33 pg (28-32); Mean Corpuscular Volume 100 fl (79-97); Platelet Count 231 K/mm3 (140-440); Red Blood Count 3.97 M/mm3 (3.65-5.03)
[2016-11-16 10:12] LABS: Anion Gap 19 mmol/L; Blood Urea Nitrogen 12 mg/dL (7-17); Calcium 8.8 mg/dL (8.4-10.2); Carbon Dioxide 25 mmol/L (22-30); Chloride 103.1 mmol/L (98-107); Glucose 107 mg/dL (65-100); Potassium 3.6 mmol/L (3.6-5.0); Sodium 143 mmol/L (137-145)
--- NOTE | 2016-11-16 10:13 | Emergency Department Report ---
ED Seizure HPI - General Chief Complaint: Seizure Stated Complaint: SEIZURE Time Seen by Provider: 11/16/16 09:55 Source: EMS Mode of arrival: Stretcher Limitations: Physical Limitation, Other - History of Present Illness Initial Comments: 7-year-old female known history of seizure disorder here after 7 minute tonic- clonic seizure. Was witnessed at shelter. According to staff there she struck her head. No Visible head trauma. Denies fevers chills nausea vomiting. Denies any other complaints except that she feels tired currently. According to her son she does take medications for seizures. On review of her medication list Vimpat and Trileptal are her medications. Complaint: seizure -: Sudden Description of Episode: tonic-clonic movement -: minutes(s) (7) Seizure History: known seizure disorder Place: home Possible Precipitating Event: none Associated Symptoms: denies: chest pain, confusion, cough - Related Data Home Medications Medication Instructions Recorded Confirmed Last Taken guaiFENesin DM [Robitussin Dm] 5 ml PO Q4H PRN 04/07/15 04/07/15 04/07/15 Previous Rx's Medication Instructions Recorded Last Taken Type OXcarbazepine [Trileptal] 300 mg PO 0800,1700 #60 tablet 04/12/14 04/07/15 Rx Felbamate [Felbatol] 600 mg PO BID #60 tablet 04/10/15 Unknown Rx Haloperidol [Haldol] 0.5 mg PO Q4HR PRN #30 tablet 04/10/15 Unknown Rx LORazepam [Ativan] 0.5 mg PO Q6H PRN #30 tablet 04/10/15 Unknown Rx Lacosamide [Vimpat] 150 mg PO 0800,1700 #60 tablet 04/10/15 Unknown Rx Metoprolol [Lopressor TAB] 25 mg PO BID #60 tablet 04/10/15 Unknown Rx OXcarbazepine [Trileptal] 150 mg PO DAILY@1200 #30 tablet 04/10/15 Unknown Rx Omeprazole [PriLOSEC] 20 mg PO DAILY #30 capsule. 04/10/15 Unknown Rx Sennosides [Senokot] 1 tab PO DAILY PRN #30 tablet 04/10/15 Unknown Rx Lacosamide [Vimpat] 150 mg PO BID #60 tablet 08/16/16 Unknown Rx Cyanocobalamin/Folic Acid [B-12 1 each SL 2XWHS #30 tab.subl 08/21/16 Unknown Rx 1,000 Mcg Sub Tablet] Levofloxacin [Levaquin TAB] 500 mg PO Q24HR #7 tablet 08/21/16 Unknown Rx Allergies Allergy/AdvReac Type Severity Reaction Status Date / Time Penicillins Allergy Unknown Verified 09/11/13 21:25 aspirin AdvReac Unknown Verified 04/07/15 19:56 ED Review of Systems ROS: Stated complaint: SEIZURE Other details as noted in HPI Comment: All other systems reviewed and negative Constitutional: malaise. denies: chills, fever Eyes: denies: eye pain, eye discharge, vision change ENT: denies: ear pain, throat pain Respiratory: denies: cough, shortness of breath, wheezing Cardiovascular: denies: chest pain, palpitations Endocrine: no symptoms reported Gastrointestinal: denies: abdominal pain, nausea, diarrhea Genitourinary: denies: urgency, dysuria, discharge Musculoskeletal: denies: back pain, joint swelling, arthralgia Skin: denies: rash, lesions Neurological: denies: headache, weakness, paresthesias Psychiatric: denies: anxiety, depression Hematological/Lymphatic: denies: easy bleeding, easy bruising ED Past Medical Hx - Past Medical History Hx Hypertension: Yes Hx Arthritis: Yes Hx Seizures: Yes Hx Dementia: Yes (Alzheimer's) Hx HIV: No Additional medical history: Epilepsy, Anxiety, Restlessness, chronic pain - Surgical History Additional Surgical History: brain surgery, nerve stimulator implanted - Social History Smoking Status: Unknown if ever smoked Substance Use Type: None - Medications Home Medications: Home Medications Medication Instructions Recorded Confirmed Last Taken Type OXcarbazepine [Trileptal] 300 mg PO 0800,1700 #60 tablet 04/12/14 04/07/1504/07 Rx guaiFENesin DM [Robitussin Dm] 5 ml PO Q4H PRN 04/07/15 04/07/15 04/07/15 History Felbamate [Felbatol] 600 mg PO BID #60 tablet 04/10/15 Unknown Rx Haloperidol [Haldol] 0.5 mg PO Q4HR PRN #30 tablet 04/10/15 Unknown Rx LORazepam [Ativan] 0.5 mg PO Q6H PRN #30 tablet 04/10/15 Unknown Rx Lacosamide [Vimpat] 150 mg PO 0800,1700 #60 tablet 04/10/15 Unknown Rx Metoprolol [Lopressor TAB] 25 mg PO BID #60 tablet 04/10/15 Unknown Rx OXcarbazepine [Trileptal] 150 mg PO DAILY@1200 #30 tablet 04/10/15 Unknown Rx Omeprazole [PriLOSEC] 20 mg PO DAILY #30 capsule.dr 04/10/15 Unknown Rx Sennosides [Senokot] 1 tab PO DAILY PRN #30 tablet 04/10/15 Unknown Rx Lacosamide [Vimpat] 150 mg PO BID #60 tablet 08/16/16 Unknown Rx Cyanocobalamin/Folic Acid [B-12 1 each SL 2XWHS #30 tab.subl 08/21/16 Unknown Rx 1,000 Mcg Sub Tablet] Levofloxacin [Levaquin TAB] 500 mg PO Q24HR #7 tablet 08/21/16 Unknown Rx ED Physical Exam - General Limitations: Physical Limitation, Other General appearance: alert, in no apparent distress - Head Head exam: Present: atraumatic, normocephalic - Eye Eye exam: Present: scleral icterus, other (right eye with significant cataract) . Absent: conjunctival injection - ENT ENT exam: Present: mucous membranes moist - Neck Neck exam: Present: normal inspection, full ROM. Absent: tenderness, lymphadenopathy - Respiratory Respiratory exam: Present: normal lung sounds bilaterally. Absent: respiratory distress - Cardiovascular Cardiovascular Exam: Present: regular rate, normal rhythm. Absent: systolic murmur, diastolic murmur, rubs, gallop - GI/Abdominal GI/Abdominal exam: Present: soft, normal bowel sounds - Extremities Exam Extremities exam: Present: normal inspection - Back Exam Back exam: Present: normal inspection - Neurological Exam Neurological exam: Present: alert, oriented X3 - Psychiatric Psychiatric exam: Present: normal affect, normal mood - Skin Skin exam: Present: warm, dry, intact, normal color. Absent: rash ED Course Vital Signs 11/16/16 11/16/16 11/16/16 08:50 08:58 09:00 Temperature 98.5 F Pulse Rate 90 86 Respiratory 18 18 Rate Blood Pressure 159/90 159/90 143/86 O2 Sat by Pulse 95 97 Oximetry 11/16/16 11/16/16 11/16/16 09:15 09:30 09:45 Temperature Pulse Rate 77 75 71 Respiratory 14 17 17 Rate Blood Pressure 156/79 156/79 O2 Sat by Pulse 96 98 100 Oximetry 11/16/16 11/16/16 11/16/16 10:00 10:43 11:01 Temperature Pulse Rate 71 69 73 Respiratory 18 15 14 Rate Blood Pressure 156/86 156/86 156/86 O2 Sat by Pulse 99 Oximetry 11/16/16 11/16/16 11/16/16 11:31 12:01 12:31 Temperature Pulse Rate 67 70 75 Respiratory 12 13 8 L Rate Blood Pressure 156/86 156/86 156/86 O2 Sat by Pulse Oximetry 11/16/16 13:01 Temperature Pulse Rate 78 Respiratory 9 L Rate Blood Pressure 156/86 O2 Sat by Pulse Oximetry ED Medical Decision Making - Lab Data Result diagrams: 11/16/16 09:40 11/16/16 09:40 - Medical Decision Making 7-year-old female with known seizure history here with complaint of seizure. According to staff at shelter it was witnessed and she struck her head. Was unable to find any visible head trauma. Given her age I will scan her head to make sure there is no intracranial bleeding check basic labs and into space discharge given that she is in no seizure patient. Labs head CT and UA negative. Plan to discharge the patient back to shelter. Portions of this chart were dictated with dictation software. There may be dictation errors contained within this note. Critical care attestation.: If time is entered above; I have spent that time in minutes in the direct care of this critically ill patient, excluding procedure time. ED Disposition Clinical Impression: Seizure Disposition: DC-01 TO HOME OR SELFCARE Is pt being admited?: No Condition: Stable Instructions: Recurrent Seizures Adult (ED) Referrals: PRIMARY CARE, [Primary Care Provider] - 3-5 Days
[2016-11-16 10:19] VITALS: BP 156/86
--- NOTE | 2016-11-16 10:56 | Cat Scan Report ---
CT HEAD WITHOUT CONTRAST: HISTORY: Seizure. Findings: Compared to 09/19/16. Left frontotemporal craniotomy changes are again noted. There is a moderate sized area of encephalomalacia in the left anterior temporal lobe measuring 5.3 x 4.8 cm. This is presumably secondary to surgery. 1 cm chronic lacunar infarct in the right thalamus is identified. Mild volume loss and mild nonspecific chronic white matter changes are stable. Ventricular size is within normal limits. There is no evidence for hemorrhage, mass, extra-axial fluid collection or large area of acute ischemia noncontrast CT. The visualized sinuses and mastoid air cells are well-aerated. IMPRESSION: Postsurgical changes as described with left temporal lobe encephalomalacia. Volume loss and chronic white matter changes. Chronic lacunar infarct in the right thalamus. No acute intracranial process is appreciated. No significant change since 09/19/16.
[2016-11-16 11:56] LABS: Bilirubin,Urine NEG (Negative); Blood,Urine LG (Negative); Ketones,Urine NEG (Negative); Leukocyte Esterase,Urine NEG (Negative); Mucus,Urine FEW /HPF; Nitrite,Urine NEG (Negative); Urobilinogen,Urine < 2.0 mg/dL (<2.0); WBC,Urine < 1.0 /HPF (0.0-6.0)
== END 2016-11-16 14:10 | disposition home or self-care (01) ==
LOC: ED 08:33
DX: G40.409 Other generalized epilepsy and epileptic syndromes, not intractable, without status epilepticus (principal); I10 Essential (primary) hypertension; G30.9 Alzheimer's disease, unspecified; F02.80 Dementia in other diseases classified elsewhere, unspecified severity, without behavioral disturbance, psychotic disturbance, mood disturbance, and anxiety; F41.9 Anxiety disorder, unspecified; Z88.0 Allergy status to penicillin; Z88.6 Allergy status to analgesic agent
CPT/HCPCS: 36415; 70450; 80048; 81001; 85025

== ENCOUNTER 2016-11-17 15:26 | Inpatient (IN) | payer MEDICARE ==
--- NOTE | 2016-11-17 18:32 | Emergency Department Report ---
ED Seizure HPI - General Chief Complaint: Seizure Stated Complaint: SEIZURE Time Seen by Provider: 11/17/16 18:21 Source: EMS Mode of arrival: Stretcher Limitations: Physical Limitation - History of Present Illness Initial Comments: 70-year-old female well-known to this emergency department status post seizure at [facility]. Patient had 2 seizures in the [facility]. According to her son is unclear she's getting her masseters hand. She has no complaints. She did bite her tongue. There is no active bleeding currently. MD Complaint: seizure -: Sudden Description of Episode: tonic-clonic movement Seizure History: known seizure disorder Place: other ([facility]) Associated Symptoms: denies: chest pain, confusion, cough, diaphoresis, fever/ chills, loss of appetite - Related Data Home Medications Medication Instructions Recorded Confirmed Last Taken guaiFENesin DM [Robitussin Dm] 5 ml PO Q4H PRN 04/07/15 04/07/15 04/07/15 Previous Rx's Medication Instructions Recorded Last Taken Type OXcarbazepine [Trileptal] 300 mg PO 0800,1700 #60 tablet 04/12/14 04/07/15 Rx Felbamate [Felbatol] 600 mg PO BID #60 tablet 04/10/15 Unknown Rx Haloperidol [Haldol] 0.5 mg PO Q4HR PRN #30 tablet 04/10/15 Unknown Rx LORazepam [Ativan] 0.5 mg PO Q6H PRN #30 tablet 04/10/15 Unknown Rx Lacosamide [Vimpat] 150 mg PO 0800,1700 #60 tablet 04/10/15 Unknown Rx Metoprolol [Lopressor TAB] 25 mg PO BID #60 tablet 04/10/15 Unknown Rx OXcarbazepine [Trileptal] 150 mg PO DAILY@1200 #30 tablet 04/10/15 Unknown Rx Omeprazole [PriLOSEC] 20 mg PO DAILY #30 capsule.dr 04/10/15 Unknown Rx Sennosides [Senokot] 1 tab PO DAILY PRN #30 tablet 04/10/15 Unknown Rx Lacosamide [Vimpat] 150 mg PO BID #60 tablet 08/16/16 Unknown Rx Cyanocobalamin/Folic Acid [B-12 1 each SL 2XWHS #30 tab.subl 08/21/16 Unknown Rx 1,000 Mcg Sub Tablet] Levofloxacin [Levaquin TAB] 500 mg PO Q24HR #7 tablet 08/21/16 Unknown Rx Allergies Allergy/AdvReac Type Severity Reaction Status Date / Time Penicillins Allergy Unknown Verified 09/11/13 21:25 aspirin AdvReac Unknown Verified 04/07/15 19:56 ED Review of Systems ROS: Stated complaint: SEIZURE Other details as noted in HPI Comment: All other systems reviewed and negative Constitutional: denies: chills, fever Eyes: denies: eye pain, eye discharge, vision change ENT: denies: ear pain, throat pain Respiratory: denies: cough, shortness of breath, wheezing Cardiovascular: denies: chest pain, palpitations Endocrine: no symptoms reported Gastrointestinal: denies: abdominal pain, nausea, diarrhea Genitourinary: denies: urgency, dysuria, discharge Musculoskeletal: denies: back pain, joint swelling, arthralgia Skin: denies: rash, lesions Neurological: denies: headache, weakness, paresthesias Psychiatric: denies: anxiety, depression Hematological/Lymphatic: denies: easy bleeding, easy bruising ED Past Medical Hx - Past Medical History Hx Hypertension: Yes Hx Arthritis: Yes Hx Seizures: Yes Hx Dementia: Yes (Alzheimer's) Hx HIV: No Additional medical history: Epilepsy, Anxiety, Restlessness, chronic pain - Surgical History Additional Surgical History: brain surgery, nerve stimulator implanted - Social History Smoking Status: Unknown if ever smoked Substance Use Type: None - Medications Home Medications: Home Medications Medication Instructions Recorded Confirmed Last Taken Type OXcarbazepine [Trileptal] 300 mg PO 0800,1700 #60 tablet 04/12/14 04/07/1504/07 Rx guaiFENesin DM [Robitussin Dm] 5 ml PO Q4H PRN 04/07/15 04/07/15 04/07/15 History Felbamate [Felbatol] 600 mg PO BID #60 tablet 04/10/15 Unknown Rx Haloperidol [Haldol] 0.5 mg PO Q4HR PRN #30 tablet 04/10/15 Unknown Rx LORazepam [Ativan] 0.5 mg PO Q6H PRN #30 tablet 04/10/15 Unknown Rx Lacosamide [Vimpat] 150 mg PO 0800,1700 #60 tablet 02/03/16 Unknown Rx Metoprolol [Lopressor TAB] 25 mg PO BID #60 tablet 04/10/15 Unknown Rx OXcarbazepine [Trileptal] 150 mg PO DAILY@1200 #30 tablet 04/10/15 Unknown Rx Omeprazole [PriLOSEC] 20 mg PO DAILY #30 capsule.dr 04/10/15 Unknown Rx Sennosides [Senokot] 1 tab PO DAILY PRN #30 tablet 04/10/15 Unknown Rx Lacosamide [Vimpat] 150 mg PO BID #60 tablet 08/16/16 Unknown Rx Cyanocobalamin/Folic Acid [B-12 1 each SL 2XWHS #30 tab.subl 08/21/16 Unknown Rx 1,000 Mcg Sub Tablet] Levofloxacin [Levaquin TAB] 500 mg PO Q24HR #7 tablet 08/21/16 Unknown Rx ED Physical Exam - General Limitations: Physical Limitation General appearance: alert, in no apparent distress - Head Head exam: Present: atraumatic, normocephalic, other (no visible head trauma) - Eye Eye exam: Present: other (right pupil wendi out). Absent: scleral icterus, conjunctival injection - ENT ENT exam: Present: mucous membranes moist - Neck Neck exam: Present: normal inspection - Respiratory Respiratory exam: Present: normal lung sounds bilaterally. Absent: respiratory distress - Cardiovascular Cardiovascular Exam: Present: regular rate, normal rhythm. Absent: systolic murmur, diastolic murmur, rubs, gallop - GI/Abdominal GI/Abdominal exam: Present: soft, normal bowel sounds - Extremities Exam Extremities exam: Present: normal inspection - Back Exam Back exam: Present: normal inspection - Neurological Exam Neurological exam: Present: alert, oriented X3 - Psychiatric Psychiatric exam: Present: normal affect, normal mood - Skin Skin exam: Present: warm, dry, intact, normal color. Absent: rash ED Course Vital Signs 11/17/16 11/17/16 11/17/16 17:40 19:43 19:45 Temperature 99.7 F H 99 F Pulse Rate 98 H 98 H Respiratory 16 20 18 Rate Blood Pressure 143/91 Blood Pressure 167/85 [Left] O2 Sat by Pulse 96 98 Oximetry ED Medical Decision Making - Lab Data Result diagrams: 11/17/16 19:12 11/17/16 19:12 Laboratory Results - last 24 hr 11/17/16 11/17/16 19:12 19:12 WBC 10.7 RBC 4.20 Hgb 14.2 Hct 41.2 MCV 98 H MCH 34 H MCHC 35 H RDW 14.0 Plt Count 254 Lymph % (Auto) 11.2 L [place] % (Auto) 5.9 Eos % (Auto) 0.1 Baso % (Auto) 0.9 Lymph # 1.2 Elliott # 0.6 Eos # 0.0 Baso # 0.1 Seg Neutrophils % 81.9 H Seg Neutrophils # 8.8 H Sodium 142 Potassium 3.7 Chloride 99.6 Carbon Dioxide 25 Anion Gap 21 BUN 13 Creatinine 0.5 L Estimated GFR > 60 BUN/Creatinine Ratio 26.00 Glucose 109 H Calcium 9.4 Total Bilirubin 0.40 AST 17 ALT 8 Alkaline Phosphatase 148 H Total Protein 7.3 Albumin 4.3 Albumin/Globulin Ratio 1.4 - EKG Data -: EKG Interpreted by Me - EKG Data 11/17/16 18:42 Sinus 96 red bundle-branch block T-wave inversion in V1 through V4 - Medical Decision Making 70-year-old female with known seizure disorder here with a third seizure in 2 days. Unclear to son patient is taking her meds at this time. Plan repeat labs and will reassess patient. Patient had a brief recurrent tonic-clonic seizure. This is her third seizure of the day. At this point only did her for multiple seizures. We are attempting to find out exactly what seizure medications she is on as an outpatient. Discussed case with hospitalist and plan to admit her for recurrent seizures. Portions of this chart were dictated with dictation software. There may be dictation errors contained within this note. Critical care attestation.: If time is entered above; I have spent that time in minutes in the direct care of this critically ill patient, excluding procedure time. ED Disposition Clinical Impression: Recurrent seizures Disposition: OP ADMIT IP TO THIS HOSP Is pt being admited?: Yes Condition: Stable Referrals: PRIMARY CARE, [Primary Care Provider] - 3-5 Days
[2016-11-17 19:26] LABS: Basophils % (Auto) 0.9 % (0.0-1.8); Eosinophils % (Auto) 0.1 % (0.0-4.3); Hematocrit 41.2 % (30.3-42.9); Hemoglobin 14.2 gm/dl (10.1-14.3); Mean Corpuscular HGB Conc 35 % (30-34); Mean Corpuscular Hemoglobin 34 pg (28-32); Mean Corpuscular Volume 98 fl (79-97); Platelet Count 254 K/mm3 (140-440); White Blood Count 10.7 K/mm3 (4.5-11.0)
[2016-11-17 19:46] LABS: Alanine Aminotransferase 8 units/L (7-56); Albumin 4.3 g/dL (3.9-5); Albumin/Globulin Ratio 1.4 %; Alkaline Phosphatase 148 units/L (35-129); Anion Gap 21 mmol/L; Blood Urea Nitrogen 13 mg/dL (7-17); Calcium 9.4 mg/dL (8.4-10.2); Carbon Dioxide 25 mmol/L (22-30); Chloride 99.6 mmol/L (98-107); Glucose 109 mg/dL (65-100); Potassium 3.7 mmol/L (3.6-5.0); Sodium 142 mmol/L (137-145); Total Protein 7.3 g/dL (6.3-8.2)
[2016-11-17] MEDS ORDERED: ATIVAN IV ONE (20:31)
[2016-11-17] MEDS ORDERED: ATIVAN ONE (20:34)
--- NOTE | 2016-11-17 22:54 | History and Physical Report ---
History of Present Illness Date of examination: 11/17/16 History of present illness: 70-year-old woman with a history of hypertension, seizure, dementia was brought to the emergency room because she had 2 seizures at the assisted living facility. While she was in the emergency room she was observed to have a tonic- clonic seizure lasting for 30 seconds. Patient was seen here in the emergency room yesterday after she had 1 seizure, she was discharged from the hospital yesterday. CT head done yesterday was negative. History per son at bedside. Review of system is unobtainable, patient is postictal PAST SURGICAL HISTORY: Surgery on the brain SOCIAL HISTORY: Denies alcohol, tobacco, drugs, assisted home living FAMILY HISTORY: Hypertension Medications and Allergies Allergies Allergy/AdvReac Type Severity Reaction Status Date / Time Penicillins Allergy Unknown Verified 09/11/13 21:25 aspirin AdvReac Unknown Verified 04/07/15 19:56 Home Medications Medication Instructions Recorded Confirmed Last Taken Type OXcarbazepine [Trileptal] 300 mg PO 0800,1700 #60 tablet 04/12/14 04/07/1504/07 Rx guaiFENesin DM [Robitussin Dm] 5 ml PO Q4H PRN 04/07/15 04/07/15 04/07/15 History Felbamate [Felbatol] 600 mg PO BID #60 tablet 04/10/15 Unknown Rx Haloperidol [Haldol] 0.5 mg PO Q4HR PRN #30 tablet 04/10/15 Unknown Rx LORazepam [Ativan] 0.5 mg PO Q6H PRN #30 tablet 04/10/15 Unknown Rx Lacosamide [Vimpat] 150 mg PO 0800,1700 #60 tablet 04/10/15 Unknown Rx Metoprolol [Lopressor TAB] 25 mg PO BID #60 tablet 04/10/15 Unknown Rx OXcarbazepine [Trileptal] 150 mg PO DAILY@1200 #30 tablet 04/10/15 Unknown Rx Omeprazole [PriLOSEC] 20 mg PO DAILY #30 capsule. 04/10/15 Unknown Rx Sennosides [Senokot] 1 tab PO DAILY PRN #30 tablet 04/10/15 Unknown Rx Lacosamide [Vimpat] 150 mg PO BID #60 tablet 06/11/17 Unknown Rx Cyanocobalamin/Folic Acid [B-12 1 each SL 2XWHS #30 tab.subl 08/21/16 Unknown Rx 1,000 Mcg Sub Tablet] Levofloxacin [Levaquin TAB] 500 mg PO Q24HR #7 tablet 08/21/16 Unknown Rx Exam - Physical Exam Narrative exam: Gen. appearance: Patient lying in bed, no apparent distress HEENT: Normocephalic, atraumatic, pupils equally round and reactive to light, unable to do extraocular movement, and no sclericterus,. No JVD or thyromegaly or nodule,neck supple, no carotid bruit ,mucous membranes moist,unable to examine oral cavity Heart: S1, S2, regular rate and rhythm Lungs: Clear to auscultation bilaterally, breathing comfortable Abdomen: Positive bowel sounds, nontender, nondistended, no organomegaly Extremity: No edema, cyanosis, clubbing Skin: No rash, nodules, warm, dry Neuro: Difficult to assess, postictal - Constitutional Vitals: Temp Pulse Resp BP Pulse Ox 99 F 98 H 18 167/85 98 11/17/16 19:43 11/17/16 19:43 11/17/16 19:45 11/17/16 19:43 11/17/16 19:43 Results - Labs CBC & Chem 7: 11/17/16 19:12 11/17/16 19:12 Labs: Abnormal lab results 11/17/16 11/17/16 Range/Units 19:12 19:12 MCV 98 H (79-97) fl MCH 34 H (28-32) pg MCHC 35 H (30-34) % Lymph % (Auto) 11.2 L (13.4-35.0) % Seg Neutrophils % 81.9 H (40.0-70.0) % Seg Neutrophils # 8.8 H (1.8-7.7) K/mm3 Creatinine 0.5 L (0.7-1.2) mg/dL Glucose 109 H (65-100) mg/dL Alkaline Phosphatase 148 H (35-129) units/L - Imaging and Cardiology CT Scan - head: report reviewed Assessment and Plan Assessment eizure episode, acute on chronic Hypertension Dementia Plan Admit to medicine start IV Ativan as needed for breakthrough seizure Consult neurology, Start DVT prophylaxis Continue outpatient medications
[2016-11-18 00:07] LABS: Bilirubin,Urine NEG (Negative); Blood,Urine MOD (Negative); Ketones,Urine NEG (Negative); Leukocyte Esterase,Urine NEG (Negative); Mucus,Urine FEW /HPF; Nitrite,Urine NEG (Negative); Urobilinogen,Urine < 2.0 mg/dL (<2.0)
[2016-11-18] MEDS ORDERED: ZOFRAN IV PRN (00:37)
[2016-11-18] MEDS ORDERED: TYLENOL PR PRN (00:37)
[2016-11-18] MEDS ORDERED: ATIVAN IV PRN (00:41)
[2016-11-18] MEDS ORDERED: NACL 0.45% 1000 ML 1,000 ML IV SCH (01:00)
--- NOTE | 2016-11-18 08:31 | Consultation ---
History of Present Illness - Reason for Consult Consult date: 11/18/16 seizure - History of Present Illness see my dictated note the [facility] and these were all reviewed agree with management she jose carlos had difficult to controkl refractory epilepsy Medications and Allergies Allergies Allergy/AdvReac Type Severity Reaction Status Date / Time Penicillins Allergy Unknown Verified 09/11/13 21:25 aspirin AdvReac Unknown Verified 04/07/15 19:56 Home Medications Medication Instructions Recorded Confirmed Last Taken Type OXcarbazepine [Trileptal] 300 mg PO 0800,1700 #60 tablet 04/12/14 04/07/1504/07 Rx guaiFENesin DM [Robitussin Dm] 5 ml PO Q4H PRN 04/07/15 04/07/15 04/07/15 History Felbamate [Felbatol] 600 mg PO BID #60 tablet 04/10/15 Unknown Rx Haloperidol [Haldol] 0.5 mg PO Q4HR PRN #30 tablet 04/10/15 Unknown Rx LORazepam [Ativan] 0.5 mg PO Q6H PRN #30 tablet 04/10/15 Unknown Rx Lacosamide [Vimpat] 150 mg PO 0800,1700 #60 tablet 04/10/15 Unknown Rx Metoprolol [Lopressor TAB] 25 mg PO BID #60 tablet 04/10/15 Unknown Rx OXcarbazepine [Trileptal] 150 mg PO DAILY@1200 #30 tablet 04/10/15 Unknown Rx Omeprazole [PriLOSEC] 20 mg PO DAILY #30 capsule. 04/10/15 Unknown Rx Sennosides [Senokot] 1 tab PO DAILY PRN #30 tablet 04/10/15 Unknown Rx Lacosamide [Vimpat] 150 mg PO BID #60 tablet 08/16/16 Unknown Rx Cyanocobalamin/Folic Acid [B-12 1 each SL 2XWHS #30 tab.subl 08/21/16 Unknown Rx 1,000 Mcg Sub Tablet] Levofloxacin [Levaquin TAB] 500 mg PO Q24HR #7 tablet 08/21/16 Unknown Rx Active Meds: Active Medications Acetaminophen (Tylenol) 650 mg [place] Q4H PRN PRN Reason: Pain MILD(1-3)/Fever >100.5/VELEZ Enoxaparin Sodium (Lovenox) 40 mg SUB-Q [facility]DAY [facility] Sodium Chloride (Nacl 0.45% 1000 Ml) 1,000 mls @ 50 mls/hr IV DIRECT MICK Influenza Virus Vaccine Quadrival (Fluarix Quad [id number](36 Mos+)) 0.5 ml IM .ONCE ONE Stop: 11/19/16 12:01 Lacosamide (Vimpat) 150 mg PO 0800,1700 [facility] Lorazepam (Ativan) 2 mg IV Q4H PRN PRN Reason: Seizures Miscellaneous Medication (Felbamate [Felbatol]) 600 mg PO BID [facility] Ondansetron HCl (Zofran) 4 mg IV Q8H PRN PRN Reason: N/V unrelieved by Rita Oxcarbazepine (Trileptal) 300 mg PO 0800,1700 [facility] Exam - Constitutional Vitals: Temp Pulse Resp BP Pulse Ox 98 F 88 18 134/79 100 11/17/16 23:57 11/17/16 23:57 11/17/16 23:57 11/17/16 23:57 11/17/16 23:57 Results - Labs CBC & Chem 7: 11/17/16 19:12 11/17/16 19:12
[2016-11-18] MEDS ORDERED: FELBAMATE 600 MG PO SCH (10:00)
[2016-11-18] MEDS: TRILEPTAL PO SCH ×2 (10:23→17:31)
[2016-11-18] MEDS: LOVENOX SUB-Q SCH (10:23)
[2016-11-18] MEDS: VIMPAT PO SCH ×2 (10:23→17:31)
--- NOTE | 2016-11-18 11:05 | Admit Criteria Form ---
Admission Criteria Documentation: SEIZURE Clinical Indications for Admission to Inpatient Care (Place 'X' for any and all applicable criteria): Admission is indicated for seizure and 1 or more of the following (1)(2)(3)(4)(5 )(6) [X ]I. Inpatient admission required rather than observation care (Also use Seizure: Observation Care Criteria as appropriate) because of 1 or more of the following: [ ]1) Altered mental status that is severe or persistent [ ]2) New focal neurologic deficit that is severe or persistent [ ]3) Metabolic disorder (eg, hypoglycemia, hyponatremia) that is severe or persistent [X ]4) Recurrent seizure [ ]5) Outpatient antiseizure regimen cannot be established (eg , patient cannot tolerate medication, initiation requires inpatient care) [ ]6) Need for ongoing intravenous infusion of anti-seizure medication [ ]7) Cerebral bleeding, hydrocephalus, or vasospasm monitoring [ ]8) Increased intracranial pressure or cerebral edema monitoring [ ]9) Other conditions, treatment or monitoring requiring inpatient admission [ ]II. Status epilepticus [A] or repetitive seizures not controlled with emergent treatment (6)(8) [ ]III. Brain disorder (eg, tumor, edema, and hydrocephalus) that requiring monitoring or intervention available only at inpatient level of care. [ ]IV. Brain insult (eg, severe trauma, stroke, drug toxicity, or withdrawal) that requires monitoring or intervention available only at inpatient level of care (10)(11) [ ]V. Cardiac arrhythmias of immediate concern Extended stay beyond goal length of stay may be needed for (22) [ ]a) Complications of status epilepticus [ ]b) Refractory status epilepticus [ ]c) Etiology-specific therapy for conditions such as INDUSTRIAL ECONOMIST infection, head injury,eclampsia, severe metabolic abnormalities, and brain tumor [ ]d) Residual neurologic damage, [ ]e) Initiation of significant change to anticonvulsant treatment [ ]f) Older patients (65 years or older) [ ]g) Patient requiring intubation (eg, to protect airway) The original [employer] content created by [employer] has been revised. The portions of the content which have been revised are identified through the use of italic text or in bold, and [facility] has neither reviewed nor approved the modified material. All other unmodified content is copyright [facility]. Please see references footnoted in the original [facility] edition 2017 Admission Criteria Met: Yes
--- NOTE | 2016-11-18 17:26 | Progress Note ---
Assessment and Plan Assessment and plan: Seizure disorder - Continue home medications and when necessary lorazepam - Neurology consult appreciated Dementia - Supportive care Hypertension - Continue home medications Malnutrition - Nutrition consult DVT prophylaxis Lovenox Disposition - We'll be discharged tomorrow if no more seizure attack. History Interval history: Patient was seen and evaluated this morning, she was sleepy but arousable and communicative. Hospitalist Physical - Physical exam Narrative exam: Not in cardiopulmonary distress. The patient is emaciated. Vital signs as documented. Head exam is unremarkable. No scleral icterus . Neck is without jugular venous distension, thyromegaly, or carotid bruits. Lungs are clear to auscultation. Cardiac exam reveals regular rate and Rhythm. First and second heart sounds normal. No murmurs, rubs or gallops. Abdominal exam reveals normal bowel sounds, no masses, no organomegaly and no aortic enlargement. Extremities are nonedematous and both femoral and pedal pulses are normal. ON AWAKE COUNSELOR: Alert and oriented 3. No focal weakness. - Constitutional Vitals: Temp Pulse Resp BP Pulse Ox 99.5 F 100 H 18 134/77 94 11/18/16 10:00 11/18/16 10:00 11/18/16 10:00 11/18/16 10:00 11/18/16 10:00 Results - Labs CBC & Chem 7: 11/17/16 19:12 11/17/16 19:12 Labs: Laboratory Last Values WBC 10.7 K/mm3 (4.5-11.0) 11/17/16 19:12 RBC 4.20 M/mm3 (3.65-5.03) 11/17/16 19:12 Hgb 14.2 gm/dl (10.1-14.3) 11/17/16 19:12 Hct 41.2 % (30.3-42.9) 11/17/16 19:12 MCV 98 fl (79-97) H 11/17/16 19:12 MCH 34 pg (28-32) H 11/17/16 19:12 MCHC 35 % (30-34) H 11/17/16 19:12 RDW 14.0 % (13.2-15.2) 11/17/16 19:12 Plt Count 254 K/mm3 (140-440) 11/17/16 19:12 Lymph % (Auto) 11.2 % (13.4-35.0) L 11/17/16 19:12 [place] % (Auto) 5.9 % (0.0-7.3) 11/17/16 19:12 Eos % (Auto) 0.1 % (0.0-4.3) 11/17/16 19:12 Baso % (Auto) 0.9 % (0.0-1.8) 11/17/16 19:12 Lymph # 1.2 K/mm3 (1.2-5.4) 11/17/16 19:12 [place] # 0.6 K/mm3 (0.0-0.8) 11/17/16 19:12 Eos # 0.0 K/mm3 (0.0-0.4) 11/17/16 19:12 Baso # 0.1 K/mm3 (0.0-0.1) 11/17/16 19:12 Seg Neutrophils % 81.9 % (40.0-70.0) H 11/17/16 19:12 Seg Neutrophils # 8.8 K/mm3 (1.8-7.7) H 11/17/16 19:12 Sodium 142 mmol/L (137-145) 11/17/16 19:12 Potassium 3.7 mmol/L (3.6-5.0) 11/17/16 19:12 Chloride 99.6 mmol/L (98-107) 11/17/16 19:12 Carbon Dioxide 25 mmol/L (22-30) 11/17/16 19:12 Anion Gap 21 mmol/L 11/17/16 19:12 BUN 13 mg/dL (7-17) 11/17/16 19:12 Creatinine 0.5 mg/dL (0.7-1.2) L 11/17/16 19:12 Estimated GFR > 60 ml/min 11/17/16 19:12 BUN/Creatinine Ratio 26.00 % 11/17/16 19:12 Glucose 109 mg/dL (65-100) H 11/17/16 19:12 Calcium 9.4 mg/dL (8.4-10.2) 11/17/16 19:12 Total Bilirubin 0.40 mg/dL (0.1-1.2) 11/17/16 19:12 AST 17 units/L (5-40) 11/17/16 19:12 ALT 8 units/L (7-56) 11/17/16 19:12 Alkaline Phosphatase 148 units/L (35-129) H 11/17/16 19:12 Total Protein 7.3 g/dL (6.3-8.2) 11/17/16 19:12 Albumin 4.3 g/dL (3.9-5) 11/17/16 19:12 Albumin/Globulin Ratio 1.4 % 11/17/16 19:12 Urine Color Yellow (Yellow) 11/17/16 Unknown Urine Turbidity Clear (Clear) 11/17/16 Unknown Urine pH 7.0 (5.0-7.0) 11/17/16 Unknown Ur Specific [place] 1.015 (1.003-1.030) 11/17/16 Unknown Urine Protein 100 mg/dl mg/dL (Negative) 11/17/16 Unknown Urine Glucose (UA) Neg mg/dL (Negative) 11/17/16 Unknown Urine Ketones Neg mg/dL (Negative) 11/17/16 Unknown Urine Blood Mod (Negative) 11/17/16 Unknown Urine Nitrite Neg (Negative) 11/17/16 Unknown Urine Bilirubin Neg (Negative) 11/17/16 Unknown Urine Urobilinogen < 2.0 mg/dL (<2.0) 11/17/16 Unknown Ur Leukocyte Esterase Neg (Negative) 11/17/16 Unknown Urine WBC (Auto) 3.0 /HPF (0.0-6.0) 11/17/16 Unknown Urine RBC (Auto) 5.0 /HPF (0.0-6.0) 11/17/16 Unknown Hyaline Casts 1 /LPF 11/17/16 Unknown Urine Mucus Few /HPF 11/17/16 Unknown
[2016-11-18] MEDS: FELBATOL PO SCH (17:30)
[2016-11-18] MEDS: LOPRESSOR PO SCH (22:57)
--- NOTE | 2016-11-19 00:46 | Consultation ---
HISTORY OF PRESENT ILLNESS: This is a 70-year-old female in room 280. She enters [facility] after presenting with a post-seizure in the Emergency Room. She had 2 seizures in the Emergency Room. According to the son, it is unclear whether she did bite her tongue. There was no active bleeding noted in the ED. The patient in the past has been on Felbatol, Haldol, Ativan, Vimpat, Trileptal and seizure medications as well as Trileptal. Review of her records indicate that she has been on 5 drugs for her seizures. Felbatol certainly a broad range of seizure medication as is the Trileptal. I reviewed the doses and these are all appropriate as far as the levels that she should have been receiving. I do not find at this point that adding medication is that critical. PLAN: To further review the history from the son, precipitating factors may occur such as infection, I certainly think she was on adequate anticonvulsants prior to being transferred here. We will get an EEG. We will review imaging studies. At this point, the patient is postictal, not very responsive, but does have symmetrical tone throughout. We will follow the patient with you. JOB# [id number] KANWAL/BRODY
[2016-11-19 06:03] LABS: Eosinophils % (Auto) 1.3 % (0.0-4.3); Hematocrit 39.2 % (30.3-42.9); Hemoglobin 13.4 gm/dl (10.1-14.3); Mean Corpuscular HGB Conc 34 % (30-34); Mean Corpuscular Hemoglobin 34 pg (28-32); Mean Corpuscular Volume 99 fl (79-97); Platelet Count 236 K/mm3 (140-440); Red Blood Count 3.96 M/mm3 (3.65-5.03); White Blood Count 8.5 K/mm3 (4.5-11.0)
[2016-11-19 06:18] LABS: Anion Gap 20 mmol/L; Blood Urea Nitrogen 19 mg/dL (7-17); Calcium 8.7 mg/dL (8.4-10.2); Carbon Dioxide 23 mmol/L (22-30); Chloride 106.9 mmol/L (98-107); Glucose 96 mg/dL (65-100); Potassium 3.5 mmol/L (3.6-5.0); Sodium 146 mmol/L (137-145)
[2016-11-19] MEDS: TRILEPTAL PO SCH (08:58)
[2016-11-19] MEDS: VIMPAT PO SCH (08:58)
[2016-11-19] MEDS: FELBATOL PO SCH (09:00)
[2016-11-19] MEDS: LOPRESSOR PO SCH (10:24)
[2016-11-19] MEDS: LOVENOX SUB-Q SCH (10:24)
[2016-11-19 10:26] VITALS: BP 114/70
--- NOTE | 2016-11-19 11:13 | Discharge Summary ---
Providers - Providers Date of Admission: 11/17/16 22:52 Date of discharge: 11/19/16 Attending physician: ALPHONSO KIM MD 11/18/16 00:37 Consult to Physician [CONS] Routine Consulting Provider: BRITNEY DELCID Reason For Exam: sz Place consult to:: answering service Notified:: yes Phone number called:: [phone] If yes, spoke with:: briseyda Time called:: 07:55 Comment:: ronny 11/18/16 17:30 Consult to Dietitian/Nutrition [CONS] Routine Physician Instructions: Reason For Exam: Reason for Consult: Malnutrition Primary care physician: CLAY DRY PRESS OPERATOR Hospitalization Reason for admission: seizure Condition: Stable Disposition: [id number] Time spent for discharge: 31 minutes - Discharge Diagnoses (1) Recurrent seizures Status: Acute Core Measure Documentation - Palliative Care Palliative Care/ Comfort Measures: Not Applicable - Core Measures Any of the following diagnoses?: none Exam - Physical Exam Narrative exam: Not in cardiopulmonary distress. The patient is emaciated. Vital signs as documented. Head exam is unremarkable. No scleral icterus . Neck is without jugular venous distension, thyromegaly, or carotid bruits. Lungs are clear to auscultation. Cardiac exam reveals regular rate and Rhythm. First and second heart sounds normal. No murmurs, rubs or gallops. Abdominal exam reveals normal bowel sounds, no masses, no organomegaly and no aortic enlargement. Extremities are nonedematous and both femoral and pedal pulses are normal. INTERIOR DECORATOR PAPERHANGING: Alert and oriented x1. No focal weakness. - Constitutional Vitals: Temp Pulse Resp BP Pulse Ox 98.5 F 86 18 114/70 90 11/18/16 20:26 11/19/16 10:24 11/19/16 10:00 11/19/16 10:24 11/18/16 20:26 Plan Activity: advance as tolerated Weight Bearing Status: Weight Bear as Tolerated Diet: low salt Follow up with: PRIMARY MD ANGELA [Primary Care Provider] - 3-5 Days
[2016-11-19] MEDS ORDERED: Fluarix Quad 2017-2018(36 MOS+) IM ONE (12:00)
--- NOTE | 2016-11-19 14:19 | Query- Nutrition ---
Tim Faulkner____Stefani Date:___11/19/2016 [employer] Team Member/CDS:____Celeste Phone#:____[phone] Exercise your independent professional judgment when responding to query. Questions asked do not imply a particular answer is desired or expected. We greatly appreciate your clarification on this issue. Clinical Documentation States: 70 Year old female was admitted on 11/17/2016 because she had 2 seizures. The Hospitalist progress note on 11/18/2016 states "-Dementia -Malnutrition." Clinical Findings Show: BMI:__17.7 Please select the most appropriate option 3 [] Mild Malnutrition [x] Mild - Moderate Malnutrition [] Moderate - Severe Malnutrition [] Severe Malnutrition Serum Albumin 2.8 to 3.4 g/dl or Pre-albumin 5 to 17 mg/dl1,2 Inadequate nutritional intake1,2,3,4 NPO > 5 days Weight loss: 5% in 1 month or 7.5% in 3 months or 10% in 6 months1, 3,4 BMI 16 to 18.4 or Weight <90% of ideal body weight1,2,3,4 Serum Albumin < 2.8 g/ dl1,2 Lymphocytes < 1500/ L2 Inadequate nutritional intake3, high stress e.g. major trauma, sepsis,pancreatitis, sauer etc. Decubitus ulcers1,2, , skin breakdown2, easy hair pluckability2 Weight <80% standard for height2 Triceps skin fold <3 mm2 Mid-arm muscle circumference <15 cm2 Creatinine-height index <60% standard2 [ ] Cachexia [ x] Emaciated w/Malnutrition [ ] Other: [ ] Unable to determine [ ] Comment/Explanation: Present on Admission: [x ] Yes (Y) [ ] Clinically undeterminable (W) [ ] No (N) Please also document response in your Progress Notes and/or Discharge Summary and indicate if the condition was present on admission. MTDD
== END 2016-11-19 15:25 | disposition home or self-care (01) | DRG 101 ==
LOC: ED 15:26 → CC2 22:52
PROVIDERS: ADMIT Internal Medicine; ATTEND Internal Medicine
PROC: 3E0234Z Introduction of Serum, Toxoid and Vaccine into Muscle, Percutaneous Approach (ICD-10-PCS; principal; 2016-11-17)
DX: G40.909 Epilepsy, unspecified, not intractable, without status epilepticus (principal); Z68.1 Body mass index [BMI] 19.9 or less, adult; E44.0 Moderate protein-calorie malnutrition; M19.90 Unspecified osteoarthritis, unspecified site; F02.80 Dementia in other diseases classified elsewhere, unspecified severity, without behavioral disturbance, psychotic disturbance, mood disturbance, and anxiety; G30.9 Alzheimer's disease, unspecified; I10 Essential (primary) hypertension; Z88.0 Allergy status to penicillin; Z88.6 Allergy status to analgesic agent; Z79.899 Other long term (current) drug therapy; Z82.49 Family history of ischemic heart disease and other diseases of the circulatory system; Z23 Encounter for immunization
CPT/HCPCS: 36415; 80048; 80053; 81001; 85025; 90686; 96374; 99285; J1650; J2060

== ENCOUNTER 2017-01-18 17:49 | Emergency (ER) | payer MEDICARE ==
--- NOTE | 2017-01-18 18:47 | Emergency Department Report ---
ED Fall HPI - General Chief Complaint: Fall Stated Complaint: FALL Time Seen by Provider: 01/18/17 18:35 Source: patient, EMS Mode of arrival: Stretcher - History of Present Illness Initial Comments: Patient is 71 years old female history of dementia brought by EMS from memory care unit at [facility] nurse [place] patient had a witnessed fall after she slipped hit her head. Denied any loss of consciousness. No focal weakness or numbness. No bowel or bladder incontinence MD Complaint: fall -: Sudden Fall From: standing Fall Witnessed: yes, by living facility s Place Fall Occurred: fci/SNF Loss of Consciousness: none Prolonged Down Time?: no Symptoms Prior to Fall: none Location: head Context: tripped/slipped - Related Data Home Medications Medication Instructions Recorded Confirmed Last Taken guaiFENesin DM [Robitussin Dm] 5 ml PO Q4H PRN 04/07/15 11/18/16 04/07/15 Previous Rx's Medication Instructions Recorded Last Taken Type OXcarbazepine [Trileptal] 300 mg PO 0800,1700 #60 tablet 04/12/14 04/07/15 Rx Felbamate (Nf) [Felbatol (Nf)] 600 mg PO BID #60 tablet 04/10/15 Unknown Rx Haloperidol [Haldol] 0.5 mg PO Q4HR PRN #30 tablet 04/10/15 Unknown Rx LORazepam [Ativan] 0.5 mg PO Q6H PRN #30 tablet 04/10/15 Unknown Rx Lacosamide [Vimpat] 150 mg PO 0800,1700 #60 tablet 04/10/15 Unknown Rx Metoprolol [Lopressor TAB] 25 mg PO BID #60 tablet 04/10/15 Unknown Rx OXcarbazepine [Trileptal] 150 mg PO DAILY@1200 #30 tablet 04/10/15 Unknown Rx Omeprazole [PriLOSEC] 20 mg PO DAILY #30 capsule. 04/10/15 Unknown Rx Sennosides [Senokot] 1 tab PO DAILY PRN #30 tablet 04/10/15 Unknown Rx Lacosamide [Vimpat] 150 mg PO BID #60 tablet 08/16/16 Unknown Rx Cyanocobalamin/Folic Acid [B-12 1 each SL 2XWHS #30 tab.subl 08/21/16 Unknown Rx 1,000 Mcg Sub Tablet] Allergies Allergy/AdvReac Type Severity Reaction Status Date / Time Penicillins Allergy Unknown Verified 09/11/13 21:25 aspirin AdvReac Unknown Verified 04/07/15 19:56 ED Review of Systems ROS: Stated complaint: FALL Other details as noted in HPI Comment: All other systems reviewed and negative Constitutional: denies: chills, fever Eyes: denies: eye pain ENT: denies: ear pain, throat pain Respiratory: denies: cough, orthopnea, shortness of breath, SOB with exertion Cardiovascular: denies: chest pain, palpitations Gastrointestinal: denies: abdominal pain, nausea, vomiting, diarrhea, constipation, hematemesis, melena, hematochezia Genitourinary: denies: hematuria Musculoskeletal: denies: back pain Neurological: denies: headache, weakness, numbness, paresthesias, confusion, vertigo ED Past Medical Hx - Past Medical History Previous Medical History?: Yes Hx Hypertension: Yes Hx Arthritis: Yes Hx Seizures: Yes Hx Dementia: Yes Hx HIV: No Additional medical history: Epilepsy, Anxiety, Restlessness, chronic pain - Surgical History Past Surgical History?: Yes Additional Surgical History: brain surgery, nerve stimulator implanted - Social History Smoking Status: Former Smoker Substance Use Type: None - Medications Home Medications: Home Medications Medication Instructions Recorded Confirmed Last Taken Type OXcarbazepine [Trileptal] 300 mg PO 0800,1700 #60 tablet 04/12/14 11/18/1604/07 Rx guaiFENesin DM [Robitussin Dm] 5 ml PO Q4H PRN 04/07/15 11/18/16 04/07/15 History Felbamate (Nf) [Felbatol (Nf)] 600 mg PO BID #60 tablet 04/10/15 11/18/16 Unknown Rx Haloperidol [Haldol] 0.5 mg PO Q4HR PRN #30 tablet 04/10/15 11/18/16 Unknown Rx LORazepam [Ativan] 0.5 mg PO Q6H PRN #30 tablet 04/10/15 11/18/16 Unknown Rx Lacosamide [Vimpat] 150 mg PO 0800,1700 #60 tablet 04/10/15 11/18/16 Unknown Rx Metoprolol [Lopressor TAB] 25 mg PO BID #60 tablet 04/10/15 11/18/16 Unknown Rx OXcarbazepine [Trileptal] 150 mg PO DAILY@1200 #30 tablet 04/10/15 11/18/16 Unknown Rx Omeprazole [PriLOSEC] 20 mg PO DAILY #30 capsule.dr 04/10/15 11/18/16 Unknown Rx Sennosides [Senokot] 1 tab PO DAILY PRN #30 tablet 04/10/15 11/18/16 Unknown Rx Lacosamide [Vimpat] 150 mg PO BID #60 tablet 08/16/16 11/18/16 Unknown Rx Cyanocobalamin/Folic Acid [B-12 1 each SL 2XWHS #30 tab.subl 08/21/16 11/18/16 Unknown Rx 1,000 Mcg Sub Tablet] ED Physical Exam - General Limitations: Other General appearance: alert, in no apparent distress - Head Head exam: Present: atraumatic, normocephalic - Eye Eye exam: Present: normal appearance. Absent: periorbital swelling, periorbital tenderness - ENT ENT exam: Present: normal orophraynx, mucous membranes moist, other (abrasion to the tip of the nose) - Neck Neck exam: Present: normal inspection, full ROM. Absent: tenderness, meningismus, lymphadenopathy, thyromegaly - Respiratory Respiratory exam: Present: normal lung sounds bilaterally. Absent: respiratory distress, wheezes, rales, rhonchi, stridor, chest wall tenderness, accessory muscle use, decreased breath sounds, prolonged expiratory - Cardiovascular Cardiovascular Exam: Present: regular rate, normal rhythm, normal heart sounds - GI/Abdominal GI/Abdominal exam: Present: soft, normal bowel sounds. Absent: tenderness, guarding, rebound, rigid, diminished bowel sounds, mass, bruit, pulsatile mass, hernia - Extremities Exam Extremities exam: Present: normal inspection, full ROM, normal capillary refill. Absent: tenderness - Back Exam Back exam: Present: normal inspection, full ROM. Absent: tenderness, CVA tenderness (R), CVA tenderness (L), muscle spasm - Neurological Exam Neurological exam: Present: alert, oriented X3, CN II-XII intact, normal gait, reflexes normal. Absent: motor sensory deficit - Psychiatric Psychiatric exam: Present: normal affect. Absent: depressed, agitated - Skin Skin exam: Present: warm, intact, normal color ED Course Vital Signs 01/18/17 18:29 Temperature 98.5 F Pulse Rate 61 Respiratory 16 Rate Blood Pressure 163/73 [Left] O2 Sat by Pulse 96 Oximetry - Reevaluation(s) Reevaluation #1: 01/18/17 19:59 Patient remained stable in the ER, no acute distress, alert oriented 3. She chatting with her son and daughter ED Medical Decision Making - Radiology Data Radiology results: report reviewed CT brain showed no acute abnormality. - Medical Decision Making We will discharge the patient back to go to her long-term facility. Critical care attestation.: If time is entered above; I have spent that time in minutes in the direct care of this critically ill patient, excluding procedure time. ED Disposition Clinical Impression: Head injury, Fall Disposition: DC-01 TO HOME OR SELFCARE Is pt being admited?: No Condition: Stable Instructions: Fall Prevention (ED), Minor Head Injury (ED)
--- NOTE | 2017-01-18 19:40 | Cat Scan Report ---
FINAL REPORT EXAM: CT HEAD/BRAIN WO CON HISTORY: HEAD INJURY TECHNIQUE: CT head without contrast PRIORS: Comparison is dated November 16, 2016 FINDINGS: Remote left craniotomy noted. There is encephalomalacia left temporal lobe unchanged. 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 Patchy and confluent areas of hypodensity are seen throughout the supratentorial white matter Noted is a right optic scleral band with increased density in the right orbit. IMPRESSION: Postoperative changes with remote left craniotomy Marked encephalomalacia left temporal lobe unchanged Chronic ischemic changes which appears stable No new acute findings
[2017-01-18] MEDS ORDERED: CATAPRES PO ONE (20:31)
[2017-01-18 20:37] VITALS: BP 169/78
== END 2017-01-18 20:45 | disposition home or self-care (01) ==
LOC: ED 17:49
DX: S09.90XA Unspecified injury of head, initial encounter (principal); W01.0XXA Fall on same level from slipping, tripping and stumbling without subsequent striking against object, initial encounter; Y93.89 Activity, other specified; Y92.89 Other specified places as the place of occurrence of the external cause; Y99.8 Other external cause status; I10 Essential (primary) hypertension
CPT/HCPCS: 70450

== ENCOUNTER 2017-05-14 18:25 | Emergency (ER) | payer MEDICARE ==
[2017-05-14 19:52] LABS: Hematocrit 38.6 % (30.3-42.9); Mean Corpuscular HGB Conc 34 % (30-34); Mean Corpuscular Hemoglobin 33 pg (28-32); Mean Corpuscular Volume 99 fl (79-97); Platelet Count 234 K/mm3 (140-440); Red Blood Count 3.89 M/mm3 (3.65-5.03); Red Cell Distribution Width 13.7 % (13.2-15.2)
[2017-05-14 20:08] LABS: BUN/Creatinine Ratio 28; Blood Urea Nitrogen 14 mg/dL (7-17); Hemolysis Index 9
--- NOTE | 2017-05-14 20:26 | Cat Scan Report ---
FINAL REPORT PROCEDURE: CT HEAD/BRAIN WO CON TECHNIQUE: Computerized tomography of the head was performed without contrast material. HISTORY: head injury. Pain. COMPARISON: Prior CT scan of the brain 01/18/2017 FINDINGS: There is been previous extensive craniotomy involving the frontal bone and also a portion of the right and left temporal bone and left parietal bone. A portion of the left temporal bone has not been replaced. This is unchanged from the prior study.. Large old area of encephalomalacia again noted in the left temporal lobe. This is unchanged from the prior study. Small area of encephalomalacia again noted in the left frontal lobe. No evidence of acute intracranial hemorrhage. No mass lesions are identified. The ventricles sulcal pattern and fissures are prominent consistent with moderate diffuse atrophy. Decreased density is seen in the periventricular white matter without mass effect consistent with gliosis probably on the basis of microvascular disease or white matter changes of aging. Postsurgical changes again noted involving the globe of the right orbit. Mucosal thickening and an air-fluid level visualized in the right maxillary sinus suggesting acute sinusitis. Visualized portions of the paranasal sinuses otherwise appear clear. Mastoid air cells are clear. IMPRESSION: Postsurgical changes are present as well as chronic areas of encephalomalacia as described above. No evidence of acute fracture or intracranial hemorrhage. Acute right maxillary sinusitis.
--- NOTE | 2017-05-14 20:29 | Emergency Department Report ---
HPI - General Chief Complaint: Head Injury Time Seen by Provider: 05/14/17 20:25 - HPI HPI: 71-year-old female presents to ED after falling and suffering a right periorbital laceration. Son is at the bedside he states that the patient has a history of seizures, high blood pressure, and usually ambulates using a wheelchair. He states that sometime patient trying to get up on her own, like today and she fell after using the toilet. Patient denies any LOC, lives in assisted living and was found on the ground by assisted living staff. Patient denies any hip pain, arm pain, chest pain, shortness of breath or palpitations. Patient is not currently taking any anticoagulants. ED Past Medical Hx - Past Medical History Hx Hypertension: Yes Hx Arthritis: Yes Hx Seizures: Yes Hx Dementia: Yes Hx HIV: No Additional medical history: Epilepsy, Anxiety, Restlessness, chronic pain - Surgical History Additional Surgical History: brain surgery, nerve stimulator implanted - Social History Smoking Status: Former Smoker Substance Use Type: None - Medications Home Medications: Home Medications Medication Instructions Recorded Confirmed Last Taken Type OXcarbazepine [Trileptal] 300 mg PO 0800,1700 #60 tablet 04/12/14 11/18/1604/07 Rx guaiFENesin DM [Robitussin Dm] 5 ml PO Q4H PRN 04/07/15 11/18/16 04/07/15 History Felbamate (Nf) [Felbatol (Nf)] 600 mg PO BID #60 tablet 04/10/15 11/18/16 Unknown Rx Haloperidol [Haldol] 0.5 mg PO Q4HR PRN #30 tablet 04/10/15 11/18/16 Unknown Rx LORazepam [Ativan] 0.5 mg PO Q6H PRN #30 tablet 04/10/15 11/18/16 Unknown Rx Lacosamide [Vimpat] 150 mg PO 0800,1700 #60 tablet 04/10/15 11/18/16 Unknown Rx Metoprolol [Lopressor TAB] 25 mg PO BID #60 tablet 04/10/15 11/18/16 Unknown Rx OXcarbazepine [Trileptal] 150 mg PO DAILY@1200 #30 tablet 04/10/15 11/18/16 Unknown Rx Omeprazole [PriLOSEC] 20 mg PO DAILY #30 capsule. 04/10/15 11/18/16 Unknown Rx Sennosides [Senokot] 1 tab PO DAILY PRN #30 tablet 04/10/15 11/18/16 Unknown Rx Lacosamide [Vimpat] 150 mg PO BID #60 tablet 08/16/16 11/18/16 Unknown Rx Cyanocobalamin/Folic Acid [B-12 1 each SL 2XWHS #30 tab.subl 08/21/16 11/18/16 Unknown Rx 1,000 Mcg Sub Tablet] ED Review of Systems ROS: Stated complaint: FALL/HEAD INJURY Other details as noted in HPI Constitutional: no symptoms reported Eyes: other (2 cm superficial laceration right corner of right eye.) Cardiovascular: denies: chest pain, palpitations, dyspnea on exertion, orthopnea Neurological: denies: headache, weakness Physical Exam - Physical Exam Physical Exam: Gen. alert and oriented 3 in no distress Head right coronary right eye 2 cm laceration, that is superficial. Normocephalic Eyes PERR LA EOMI Chest regular rate and rhythm normal S1-S2 lungs clear bilaterally Abdomen soft nondistended Back no point tenderness paravertebral tenderness Neuro no focal deficit. Psych normal mood. Musculoskeletal: Bilateral hips were palpated with no tenderness noted. Good range of motion in bilateral hips, bilateral knees, bilateral shoulders, bilateral elbows, without pain. ED Course - Reevaluation(s) Reevaluation #2: 05/15/17 01:10 Laceration area cleaned and a sterile manner. The laceration measured 2 centimeters long superficial right corner of right eye involving eyelid. Dermabond was applied, laceration was closed, hemostatic. ED Medical Decision Making - Lab Data Result diagrams: 05/14/17 19:27 05/14/17 19:27 Critical care attestation.: If time is entered above; I have spent that time in minutes in the direct care of this critically ill patient, excluding procedure time. ED Disposition Clinical Impression: Fall Qualifiers: Encounter type: initial encounter Qualified Code(s): W19.XXXA - Unspecified fall, initial encounter Laceration of skin of forehead without complication Qualifiers: Encounter type: initial encounter Qualified Code(s): S01.81XA - Laceration without foreign body of other part of head, initial encounter Disposition: - TO HOME OR SELFCARE Is pt being admited?: No Does the pt Need Aspirin: No Condition: Stable Instructions: Laceration (ED), Skin Adhesive Care (ED) Referrals: PRIMARY CARE,MD [Primary Care Provider] - 3-5 Days
[2017-05-14 22:17] VITALS: BP 150/62
== END 2017-05-14 23:00 | disposition home or self-care (01) ==
LOC: ED 18:25
DX: S01.81XA Laceration without foreign body of other part of head, initial encounter (principal); I10 Essential (primary) hypertension; M19.90 Unspecified osteoarthritis, unspecified site; R56.9 Unspecified convulsions; F03.90 Unspecified dementia, unspecified severity, without behavioral disturbance, psychotic disturbance, mood disturbance, and anxiety; Z88.6 Allergy status to analgesic agent; Z88.0 Allergy status to penicillin; Z87.891 Personal history of nicotine dependence; W19.XXXA Unspecified fall, initial encounter; Y93.89 Activity, other specified; Y92.89 Other specified places as the place of occurrence of the external cause; Y99.8 Other external cause status
CPT/HCPCS: 36415; 70450; 80048; 85027

== ENCOUNTER 2019-12-04 17:43 | Emergency (ER) | payer MEDICARE ==
--- NOTE | 2019-12-04 18:00 | Emergency Department Report ---
ED Fall HPI - General Stated Complaint: LAC TO LT EYE Time Seen by Provider: 12/04/19 17:47 - History of Present Illness Initial Comments: Ms. Marte is a 73 years old female with history of advanced dementia, hypertension and seizure. Patient brought to the emergency room via EMS from a dementia unit for evaluation after a fall that happened just prior to coming to the ER. Patient presented with 1 cm laceration to the left eyebrow. Patient is alert, oriented in place, person but not time. Patient denied any headache. Patient is not on blood thinner. Patient denied any neck pain or any other injuries. MD Complaint: fall -: Sudden, This afternoon When Fall Occurred: just prior to arrival Fall Witnessed: yes, by living facility s Place Fall Occurred: intermediate/SNF Loss of Consciousness: none Prolonged Down Time?: no Symptoms Prior to Fall: none Location: face Context: tripped/slipped Associated Symptoms: denies - Related Data Home Medications Medication Instructions Recorded Confirmed Last Taken guaiFENesin DM [Robitussin Dm] 5 ml PO Q4H PRN 04/07/15 11/18/16 04/07/15 Previous Rx's Medication Instructions Recorded Last Taken Type OXcarbazepine [Trileptal] 300 mg PO 0800,1700 #60 tablet 04/12/14 04/07/15 Rx Felbamate (Nf) [Felbatol (Nf)] 600 mg PO BID #60 tablet 04/10/15 Unknown Rx LORazepam [Ativan] 0.5 mg PO Q6H PRN #30 tablet 04/10/15 Unknown Rx Lacosamide [Vimpat] 150 mg PO 0800,1700 #60 tablet 04/10/15 Unknown Rx Metoprolol [Lopressor TAB] 25 mg PO BID #60 tablet 04/10/15 Unknown Rx OXcarbazepine [Trileptal] 150 mg PO DAILY@1200 #30 tablet 04/10/15 Unknown Rx Omeprazole [PriLOSEC] 20 mg PO DAILY #30 capsule. 04/10/15 Unknown Rx Sennosides [Senokot] 1 tab PO DAILY PRN #30 tablet 04/10/15 Unknown Rx haloperidoL [Haldol] 0.5 mg PO Q4HR PRN #30 tablet 04/10/15 Unknown Rx Lacosamide [Vimpat] 150 mg PO BID #60 tablet 08/16/16 Unknown Rx Cyanocobalamin/Folic Acid [B-12 1 each SL 2XWHS #30 tab.subl 08/21/16 Unknown Rx 1,000 Mcg Sub Tablet] Allergies Allergy/AdvReac Type Severity Reaction Status Date / Time Penicillins Allergy Unknown Verified 09/11/13 21:25 aspirin AdvReac Unknown Verified 04/07/15 19:56 ED Review of Systems ROS: Stated complaint: LAC TO LT EYE Other details as noted in HPI Comment: All other systems reviewed and negative Constitutional: denies: chills, fever Respiratory: denies: cough, shortness of breath, SOB with exertion, SOB at rest Cardiovascular: denies: chest pain, palpitations Gastrointestinal: denies: abdominal pain, nausea, vomiting Musculoskeletal: denies: back pain Neurological: denies: headache, weakness, numbness, paresthesias, confusion ED Past Medical Hx - Past Medical History Hx Hypertension: Yes Hx Arthritis: Yes Hx Seizures: Yes Hx Dementia: Yes Hx HIV: No Additional medical history: Epilepsy, Anxiety, Restlessness, chronic pain - Surgical History Additional Surgical History: brain surgery, nerve stimulator implanted - Social History Smoking Status: Former Smoker Substance Use Type: None - Medications Home Medications: Home Medications Medication Instructions Recorded Confirmed Last Taken Type OXcarbazepine [Trileptal] 300 mg PO 0800,1700 #60 tablet 04/12/14 11/18/16 04/07/15 Rx guaiFENesin DM [Robitussin Dm] 5 ml PO Q4H PRN 04/07/15 11/18/16 04/07/15 History Felbamate (Nf) [Felbatol (Nf)] 600 mg PO BID #60 tablet 04/10/15 11/18/16 Unknown Rx LORazepam [Ativan] 0.5 mg PO Q6H PRN #30 tablet 04/10/15 11/18/16 Unknown Rx Lacosamide [Vimpat] 150 mg PO 0800,1700 #60 tablet 04/10/15 11/18/16 Unknown Rx Metoprolol [Lopressor TAB] 25 mg PO BID #60 tablet 04/10/15 11/18/16 Unknown Rx OXcarbazepine [Trileptal] 150 mg PO DAILY@1200 #30 tablet 04/10/15 11/18/16 Unknown Rx Omeprazole [PriLOSEC] 20 mg PO DAILY #30 capsule. 04/10/15 11/18/16 Unknown Rx Sennosides [Senokot] 1 tab PO DAILY PRN #30 tablet 04/10/15 11/18/16 Unknown Rx haloperidoL [Haldol] 0.5 mg PO Q4HR PRN #30 tablet 04/10/15 11/18/16 Unknown Rx Lacosamide [Vimpat] 150 mg PO BID #60 tablet 08/16/16 11/18/16 Unknown Rx Cyanocobalamin/Folic Acid [B-12 1 each SL 2XWHS #30 tab.subl 08/21/16 11/18/16 Unknown Rx 1,000 Mcg Sub Tablet] ED Physical Exam - General General appearance: alert, in no apparent distress - Head Head exam: Present: other (1 cm laceration to the left eyebrow.) - Eye Eye exam: Present: normal appearance - ENT ENT exam: Present: normal exam, normal orophraynx, mucous membranes moist - Neck Neck exam: Present: normal inspection, full ROM. Absent: tenderness, meningismus, lymphadenopathy, thyromegaly - Respiratory Respiratory exam: Present: normal lung sounds bilaterally - Cardiovascular Cardiovascular Exam: Present: regular rate, normal rhythm, normal heart sounds - GI/Abdominal GI/Abdominal exam: Present: soft, normal bowel sounds. Absent: distended, tenderness, guarding, rebound, rigid, organomegaly, mass, bruit, pulsatile mass, hernia - Extremities Exam Extremities exam: Present: normal inspection, full ROM, normal capillary refill. Absent: calf tenderness - Back Exam Back exam: Present: normal inspection, full ROM. Absent: CVA tenderness (R), CVA tenderness (L) - Neurological Exam Neurological exam: Present: alert. Absent: motor sensory deficit - Psychiatric Psychiatric exam: Present: normal mood - Skin Skin exam: Present: warm ED Course Vital Signs 12/04/19 18:01 Temperature 98.0 F Pulse Rate 67 Respiratory 17 Rate Blood Pressure 155/65 [Left] O2 Sat by Pulse 99 Oximetry - Laceration /Wound Repair Face Wound Location: face Wound Length (cm): 1 Wound's Depth, Shape: linear Wound Explored: clean Betadine Prep?: Yes Wound Repaired With: Steri-strips Sterile Dressing Applied?: Yes ED Medical Decision Making - Radiology Data Radiology results: report reviewed - Medical Decision Making Ms. Marte is a 73 years old female with history of advanced dementia, hypertension and seizure. Patient brought to the emergency room via EMS from a dementia unit for evaluation after a fall that happened just prior to coming to the ER. Patient presented with 1 cm laceration to the left eyebrow. Patient is alert, oriented in place, person but not time. Patient denied any headache. Patient is not on blood thinner. Patient denied any neck pain or any other injuries. Patient remained stable in the ER. CT brain is negative for acute finding. Steri-Strip applied to the 1 cm laceration to the left eyebrow. Patient tetanus immunization is up-to-date. Fall injury prevention and instruction given to the patient. Critical care attestation.: If time is entered above; I have spent that time in minutes in the direct care of this critically ill patient, excluding procedure time. ED Disposition Clinical Impression: Fall with injury, Laceration of eyebrow, left, Head injury Disposition: DC- TO HOME OR SELFCARE Is pt being admited?: No Condition: Stable Instructions: Fall Prevention for Older Adults (ED), Laceration (ED), Skin Adhesive Care (ED) Referrals: PRIMARY CARE, [Referring] - 3-5 Days
[2019-12-04 18:02] VITALS: BP 155/65
--- NOTE | 2019-12-04 19:31 | Cat Scan Report ---
CT HEAD WITHOUT CONTRAST INDICATION / CLINICAL INFORMATION: head injury. TECHNIQUE: All CT scans at this location are performed using CT dose reduction for ALARA by means of automated e xposure control. COMPARISON: CT 05/14/2017 and 01/18/2017. FINDINGS: Postoperative changes: Patient is status post pterional and frontal parietal craniotomy on the left. 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 In additio n there is a small calvarial defect in the region of the right pterion. HEMORRHAGE: No evidence of intracranial hemorrhage or extra-axial fluid collection. EXTRA-AXIAL SPACES: Focal dilatation of cortical sulci is observed along the left temporal operculum. Left sylvian fissure is also dilated secondary to remote left temporal lobe injury. Elsewhere age-ap propriate parenchymal volume loss is noted. VENTRICULAR SYSTEM: Third and lateral ventricles are mildly enlarged collecting age-related parenchym al volume loss. CEREBRAL PARENCHYMA: Extensive periventricular and deep white matter lucency is noted in both cerebra l hemispheres. In addition there is evidence of remote small deep infarctions in a bilateral ganglioc apsular distribution. 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 Similar findings wer e present on previous study. MIDLINE SHIFT OR HERNIATION: There is no mass effect. CEREBELLUM / BRAINSTEM: Brainstem and cerebellum have an unremarkable appearance. MIDLINE STRUCTURES:No abnormalities of the pituitary gland or pineal region are identified. INTRACRANIAL VESSELS: Calcified atherosclerotic plaque is seen along the course of the cavernous segm ents of both internal carotid arteries. Similar findings are seen at the distal right vertebral arter y. ORBITS: Postoperative changes are seen to involve the right globe. Patient is also status post left c ataract surgery. SOFT TISSUES of HEAD: No significant abnormality. CALVARIUM: Evaluation of bone windows reveals no abnormalities. PARANASAL SINUSES / MASTOID AIR CELLS: Paranasal sinuses are free from inflammatory mucosal disease. Mastoid air cells are normally pneumatized. IMPRESSION: 1. No acute intracranial abnormality. 2. Extensive postoperative changes status post left-sided frontoparietal craniotomy and pterional aircraft systems technician niotomy. 3. No significant interval change. Signer Name: Evert Casillas MD Signed: 12/04/2019 7:27 PM Workstation Name: [id number]
== END 2019-12-04 22:11 | disposition home or self-care (01) ==
LOC: ED 17:43
DX: S01.112A Laceration without foreign body of left eyelid and periocular area, initial encounter (principal); I10 Essential (primary) hypertension; M13.88 Other specified arthritis, other site; F03.90 Unspecified dementia, unspecified severity, without behavioral disturbance, psychotic disturbance, mood disturbance, and anxiety; G40.909 Epilepsy, unspecified, not intractable, without status epilepticus; Z87.891 Personal history of nicotine dependence; Z98.890 Other specified postprocedural states; Z79.899 Other long term (current) drug therapy; Z88.0 Allergy status to penicillin; Z88.6 Allergy status to analgesic agent; X58.XXXA Exposure to other specified factors, initial encounter; Y93.89 Activity, other specified; Y92.89 Other specified places as the place of occurrence of the external cause; Y99.8 Other external cause status
CPT/HCPCS: 70450

== ENCOUNTER 2020-02-08 15:16 | Emergency (ER) | payer MEDICARE ==
--- NOTE | 2020-02-08 15:29 | Event Note ---
Date: 02/08/20 The patient was evaluated in the emergency department for symptoms described in the history of present illness. He/she was evaluated in the context of the global COVID-19 pandemic, which necessitated consideration that the patient might be at risk for infection with the virus that causes COVID-19. Institutional protocols and algorithms that pertain to the evaluation of patients at risk for COVID-19 are in a state of rapid change based on information released by regulatory bodies including the CDC and federal and state organizations. These policies and algorithms were followed during the patient's care in the emergency department. Please note that these policies, procedures and recommendations changed on a rapid basis. Patient is a 74-year-old female, past medical history of seizure, hypertension, dementia, debility, recently admitted to this hospital for hypernatremia, weakness, COVID-19, and renal insufficiency. Patient was discharged from this hospital on January 31. Patient sent here for complaint of weakness, hypoxia, malaise, fatigue, and hypotension. Place patient on monitor, obtain laboratory studies, EKG, urinalysis, x-ray of the chest, and reassess.
--- NOTE | 2020-02-08 16:01 | XRay Report ---
CHEST 1 VIEW INDICATION / CLINICAL INFORMATION: Weakness. COMPARISON: 01/29/2020 FINDINGS: SUPPORT DEVICES: None. HEART / MEDIASTINUM: No significant abnormality. LUNGS / PLEURA: Chronic changes in both lungs No pneumothorax. ADDITIONAL FINDINGS: No significant additional findings. IMPRESSION: Chronic changes in both lungs. No acute disease or interval change from 01/29/2020 Signer Name: Rohan Rodas MD FACR Signed: 02/08/2020 3:56 PM Workstation Name: [id number]
[2020-02-08 16:07] VITALS: BP 123/62
[2020-02-08 16:56] LABS: Bilirubin,Urine NEG (Negative); Blood,Urine NEG (Negative); Color,Urine Yellow (Yellow); Hyaline Casts,Urine 7 /LPF; Mucus,Urine 2+ /HPF; Protein,Urine <15 mg/dL mg/dL (Negative)
[2020-02-08] MEDS ORDERED: SODIUM CHLORIDE 0.9% 1000 ML 1,000 ML IV ONE (17:13)
--- NOTE | 2020-02-08 17:13 | Emergency Department Report ---
ED General Adult HPI - General Chief complaint: Altered Mental Status Stated complaint: LETHARGY,POSITIVE COVID Time Seen by Provider: 02/08/20 16:48 Source: EMS Mode of arrival: Ambulatory Limitations: No Limitations - History of Present Illness Initial comments: Patient is a 74-year-old female with a past medical history of seizure disorder hypertension dementia who had a recent history of COVID-19. Patient was in our hospital between 01/28/2020 and 02/02/2020. Patient was admitted for COVID-19 pneumonia and was started on Levaquin and received daily dexamethasone injections. Patient was not a candidate for remdesivir. Inflammatory markers during her stay remained stable. Patient was discharged back to her assisted living. Patient also had a sodium greater than 160 sodium did improve before discharge. [facility] because of some "increased lethargy." It is hard to tell what the patient's actual baseline is. Patient seems to be pretty poor functioning. Patient is sleeping in the room. Per the limited notes I do have from the [facility] she must occasionally be able to get to the bathroom with assistance. Patient is a DNR at this time. Severity scale (0 -10): 3 - Related Data Home Medications Medication Instructions Recorded Confirmed Last Taken guaiFENesin DM [Robitussin Dm] 5 ml PO Q4H PRN 04/07/15 01/29/20 04/07/15 Previous Rx's Medication Instructions Recorded Last Taken Type LORazepam [Ativan] 0.5 mg PO Q6H PRN #30 tablet 04/10/15 Unknown Rx Omeprazole [PriLOSEC] 20 mg PO DAILY #30 capsule.dr 04/10/15 Unknown Rx Sennosides [Senokot] 1 tab PO DAILY PRN #30 tablet 04/10/15 Unknown Rx haloperidoL [Haldol] 0.5 mg PO Q4HR PRN #30 tablet 04/10/15 Unknown Rx Cyanocobalamin/Folic Acid [B-12 1 each SL 2XWHS #30 tab.subl 08/21/16 Unknown Rx 1,000 Mcg Sub Tablet] Felbamate 600 mg PO BID #60 02/01/20 Unknown Rx Felbamate (Nf) [Felbatol (Nf)] 600 mg PO BID #60 tablet 02/01/20 Unknown Rx Lacosamide [Vimpat] 100 mg PO Q12HR #60 tablet 02/01/20 Unknown Rx Lacosamide [Vimpat] 150 mg PO 0800,1700 #60 tablet 02/01/20 Unknown Rx Lacosamide [Vimpat] 150 mg PO BID #60 tablet 02/01/20 Unknown Rx Metoprolol [Lopressor TAB] 12.5 mg PO BID #60 tablet 02/01/20 Unknown Rx OXcarbazepine [Trileptal] 150 mg PO DAILY@1200 tablet 02/01/20 Unknown Rx OXcarbazepine [Trileptal] 300 mg PO 0800,1700 tablet 02/01/20 Unknown Rx OXcarbazepine [Trileptal] 300 mg PO 0800,1700 #60 tablet 02/01/20 Unknown Rx dexAMETHasone [Decadron] 6 mg PO DAILY #8 tablet 02/01/20 Unknown Rx levoFLOXacin [Levaquin TAB] 500 mg PO QDAY #5 tablet 02/08/20 Unknown Rx Allergies Allergy/AdvReac Type Severity Reaction Status Date / Time Penicillins Allergy Unknown Verified 09/11/13 21:25 aspirin AdvReac Unknown Verified 04/07/15 19:56 ED Review of Systems ROS: Stated complaint: LETHARGY,POSITIVE COVID Other details as noted in HPI Comment: Unobtainable due to pts medical conditions ED Past Medical Hx - Past Medical History Previous Medical History?: Yes Hx Hypertension: Yes Hx Arthritis: Yes Hx Seizures: Yes Hx Dementia: Yes Hx HIV: No Additional medical history: Epilepsy, Anxiety, Restlessness, chronic pain - Surgical History Past Surgical History?: Yes Additional Surgical History: brain surgery, nerve stimulator implanted - Social History Smoking Status: Never Smoker - Medications Home Medications: Home Medications Medication Instructions Recorded Confirmed Last Taken Type guaiFENesin DM [Robitussin Dm] 5 ml PO Q4H PRN 04/07/15 01/29/20 04/07/15 History LORazepam [Ativan] 0.5 mg PO Q6H PRN #30 tablet 04/10/15 01/29/20 Unknown Rx Omeprazole [PriLOSEC] 20 mg PO DAILY #30 capsule. 04/10/15 01/29/20 Unknown Rx Sennosides [Senokot] 1 tab PO DAILY PRN #30 tablet 04/10/15 01/29/20 Unknown Rx haloperidoL [Haldol] 0.5 mg PO Q4HR PRN #30 tablet 04/10/15 01/29/20 Unknown Rx Cyanocobalamin/Folic Acid [B-12 1 each SL 2XWHS #30 tab.subl 08/21/16 01/29/20 Unknown Rx 1,000 Mcg Sub Tablet] Felbamate 600 mg PO BID #60 02/01/20 Unknown Rx Felbamate (Nf) [Felbatol (Nf)] 600 mg PO BID #60 tablet 02/01/20 Unknown Rx Lacosamide [Vimpat] 100 mg PO Q12HR #60 tablet 02/01/20 Unknown Rx Lacosamide [Vimpat] 150 mg PO 0800,1700 #60 tablet 02/01/20 Unknown Rx Lacosamide [Vimpat] 150 mg PO BID #60 tablet 02/01/20 Unknown Rx Metoprolol [Lopressor TAB] 12.5 mg PO BID #60 tablet 02/01/20 Unknown Rx OXcarbazepine [Trileptal] 150 mg PO DAILY@1200 tablet 02/01/20 Unknown Rx OXcarbazepine [Trileptal] 300 mg PO 0800,1700 tablet 02/01/20 Unknown Rx OXcarbazepine [Trileptal] 300 mg PO 0800,1700 #60 tablet 02/01/20 Unknown Rx dexAMETHasone [Decadron] 6 mg PO DAILY #8 tablet 02/01/20 Unknown Rx levoFLOXacin [Levaquin TAB] 500 mg PO QDAY #5 tablet 02/08/20 Unknown Rx ED Physical Exam - General Limitations: Altered Mental Status General appearance: lethargic - Head Head exam: Present: atraumatic, normocephalic, other (Patient appears to have some type of tumorous growth on her nose) - Eye Eye exam: Present: normal appearance - ENT ENT exam: Present: mucous membranes dry - Neck Neck exam: Present: normal inspection - Respiratory Respiratory exam: Present: normal lung sounds bilaterally. Absent: respiratory distress, wheezes, rales, rhonchi - Cardiovascular Cardiovascular Exam: Present: regular rate, normal rhythm, normal heart sounds. Absent: systolic murmur, diastolic murmur, rubs, gallop - GI/Abdominal GI/Abdominal exam: Present: soft, normal bowel sounds, other (Abdomen is scaphoid with skin tenting). Absent: distended, tenderness, guarding, rebound - Extremities Exam Extremities exam: Present: normal inspection - Back Exam Back exam: Present: normal inspection - Neurological Exam Neurological exam: Present: alert, altered - Skin Skin exam: Present: warm, dry, intact, normal color. Absent: rash ED Course Vital Signs 02/08/20 02/08/20 02/08/20 16:03 16:22 16:32 Temperature 98.7 F Pulse Rate 79 79 Respiratory 18 18 15 Rate Blood Pressure 123/62 Blood Pressure 123/62 [Right] O2 Sat by Pulse 100 100 49 L Oximetry - Reevaluation(s) Reevaluation #1: 02/08/20 17:13 Patient was placed on a monitor. Vital signs actually within normal limits. Patient is showing minimal activity in the room is lethargic sleeping. Patient be given a liter of normal saline. Will check basic laboratory studies including a BMP CBC and urinalysis. Chest x-ray will be performed. Patient is not meeting sepsis criteria at this time. Reevaluation #2: 02/08/20 18:38 After 1 L of fluid the patient is now talkative and states that she feels fine. She was asleep but with tapping her leg she opened her eyes and I asked her how she was feeling. She was able to say her name. We will give the patient an additional liter of fluid as she seems to be responding well. ED Medical Decision Making - Lab Data Result diagrams: 02/08/20 17:04 02/08/20 17:04 Lab Results 02/08/20 02/08/20 02/08/20 Range/Units 16:22 17:04 17:04 WBC 15.7 H (4.5-11.0) K/mm3 RBC 3.46 L (3.65-5.03) M/mm3 Hgb 11.9 (10.1-14.3) gm/dl Hct 35.8 (30.3-42.9) % MCV 104 H (79-97) fl MCH 34 H (28-32) pg MCHC 33 (30-34) % RDW 14.6 (13.2-15.2) % Plt Count 291 (140-440) K/mm3 Lymph % (Auto) 6.4 L (13.4-35.0) % [place] % (Auto) 4.5 (0.0-7.3) % Eos % (Auto) 0.0 (0.0-4.3) % Baso % (Auto) 0.5 (0.0-1.8) % Lymph # (Auto) 1.0 L (1.2-5.4) K/mm3 [place] # (Auto) 0.7 (0.0-0.8) K/mm3 Eos # (Auto) 0.0 (0.0-0.4) K/mm3 Baso # (Auto) 0.1 (0.0-0.1) K/mm3 Seg Neutrophils % 88.6 H (40.0-70.0) % Seg Neutrophils # 13.9 H (1.8-7.7) K/mm3 Sodium 150 H (137-145) mmol/L Potassium 4.1 (3.6-5.0) mmol/L Chloride 116.8 H (98-107) mmol/L Carbon Dioxide 22 (22-30) mmol/L Anion Gap 15 mmol/L BUN 23 H (7-17) mg/dL Creatinine 0.5 L (0.6-1.2) mg/dL Estimated GFR > 60 ml/min BUN/Creatinine Ratio 46 % Glucose 124 H (65-100) mg/dL Calcium 10.6 H (8.4-10.2) mg/dL Magnesium 2.00 (1.7-2.3) mg/dL Total Bilirubin 0.30 (0.1-1.2) mg/dL AST 224 H (5-40) units/L ALT 37 (7-56) units/L Alkaline Phosphatase 87 (35-129) units/L Total Protein 6.8 (6.3-8.2) g/dL Albumin 3.4 L (3.9-5) g/dL Albumin/Globulin Ratio 1.0 % Urine Color Yellow (Yellow) Urine Turbidity Clear (Clear) Urine pH 5.0 (5.0-7.0) Ur Specific [place] 1.015 (1.003-1.030) Urine Protein <15 mg/dl (Negative) mg/dL Urine Glucose (UA) Neg (Negative) mg/dL Urine Ketones Neg (Negative) mg/dL Urine Blood Neg (Negative) Urine Nitrite Neg (Negative) Urine Bilirubin Neg (Negative) Urine Urobilinogen 2.0 (<2.0) mg/dL Ur Leukocyte Esterase Mod (Negative) Urine WBC (Auto) 29.0 H (0.0-6.0) /HPF Urine RBC (Auto) 3.0 (0.0-6.0) /HPF U Epithel Cells (Auto) 2.0 (0-13.0) /HPF Hyaline Casts 7 /LPF Urine Mucus 2+ /HPF - Radiology Data [facility] [address] [place] [address] XRay Report Signed Patient: RUTH MAGUIRE MR#: [id number] 37 : 1945 Acct:[id number] Age/Sex: 74 / F ADM Date: 02/08/20 Loc: ED Attending Dr: Ordering Physician: ELIANA AL MD Date of Service: 02/08/20 Procedure(s): XR chest 1V ap Accession Number(s): [id number] cc: ELIANA AL MD Fluoro Time In Minutes: CHEST 1 VIEW INDICATION / CLINICAL INFORMATION: Weakness. COMPARISON: 01/29/2020 FINDINGS: SUPPORT DEVICES: None. HEART / MEDIASTINUM: No significant abnormality. LUNGS / PLEURA: Chronic changes in both lungs No pneumothorax. ADDITIONAL FINDINGS: No significant additional findings. IMPRESSION: Chronic changes in both lungs. No acute disease or interval change from 1 03/30/2019 Signer Name: Rohan Rodas MD FACR Signed: 02/08/2020 3:56 PM Workstation Name: [id number] - Medical Decision Making Patient is a 74-year-old female who is a DO NOT RESUSCITATE patient who is presenting with some increased lethargy. After first liter of fluid the patient appears to be closer to her described baseline. She is moving around in bed and is following commands. Patient was able to take the Levaquin by mouth and even showed us that she had swallowed the pill. Appears that she still has a urinary tract infection. Although her urine looks better than the 2 previous urinalysis that were performed while she was admitted does grew out just normal skin pastora. This may be actual urinary tract infection will be started on 5-day course of Levaquin. Patient was given 2 L of normal saline and her mental status has improved. Patient be discharged back to her custodial home. Critical care attestation.: If time is entered above; I have spent that time in minutes in the direct care of this critically ill patient, excluding procedure time. ED Disposition Clinical Impression: UTI (urinary tract infection), Hypernatremia, Mild dehydration Disposition: DC-01 TO HOME OR SELFCARE Is pt being admited?: No Does the pt Need Aspirin: No Condition: Stable Instructions: Urinary Tract Infection, Adult Additional Instructions: Patient is had only a slight increase in her sodium. Sodium levels are not at the level that they were when she was admitted to the hospital. Patient received 2 L of normal saline and her mental status is improved. She was able to take a oral Levaquin for her urinary tract infection. Patient has been medically cleared and is stable to return back to her custodial home. Referrals: BRITNEY MORALES MD [Primary Care Provider] - 3-5 Days Time of Disposition: 19:24
[2020-02-08 17:26] LABS: Basophils # (Auto) 0.1 K/mm3 (0.0-0.1); Basophils % (Auto) 0.5 % (0.0-1.8); Hematocrit 35.8 % (30.3-42.9); Hemoglobin 11.9 gm/dl (10.1-14.3); Lymphocytes % (Auto) 6.4 % (13.4-35.0); Mean Corpuscular HGB Conc 33 % (30-34); Mean Corpuscular Volume 104 fl (79-97); Monocytes # (Auto) 0.7 K/mm3 (0.0-0.8); Monocytes % (Auto) 4.5 % (0.0-7.3); Platelet Count 291 K/mm3 (140-440); Red Blood Count 3.46 M/mm3 (3.65-5.03); Red Cell Distribution Width 14.6 % (13.2-15.2)
[2020-02-08 17:42] LABS: Alanine Aminotransferase 37 units/L (7-56); Albumin 3.4 g/dL (3.9-5); Blood Urea Nitrogen 23 mg/dL (7-17); Calcium 10.6 mg/dL (8.4-10.2); Hemolysis Index 6
[2020-02-08 17:44] LABS: BUN/Creatinine Ratio 46
[2020-02-08] MEDS ORDERED: SODIUM CHLORIDE 0.9% 500 ML 500 ML IV ONE ×2 (18:28→18:39)
[2020-02-08] MEDS ORDERED: levoFLOXacin 500 MG TAB PO ONE (18:39)
== END 2020-02-08 20:58 | disposition home or self-care (01) ==
LOC: ED 15:16
DX: N39.0 Urinary tract infection, site not specified (principal); E87.0 Hyperosmolality and hypernatremia; E86.0 Dehydration; I10 Essential (primary) hypertension; M19.91 Primary osteoarthritis, unspecified site; R56.9 Unspecified convulsions; F03.90 Unspecified dementia, unspecified severity, without behavioral disturbance, psychotic disturbance, mood disturbance, and anxiety; Z98.890 Other specified postprocedural states; Z79.899 Other long term (current) drug therapy; Z88.8 Allergy status to other drugs, medicaments and biological substances; Z88.0 Allergy status to penicillin
CPT/HCPCS: 36415; 71045; 80053; 81001; 83735; 85025; 87040; 87086; 96360; 99284; J7030; J7040